=== PATIENT | female | born 1940 | race Caucasian/White ===

== ENCOUNTER 2018-02-01 15:27 | Emergency (ER) | payer OTHER, MEDICAID ==
[~2018-02-01] VITALS: Ht 165.1 cm; Wt 68.0 kg
[~2018-02-01 15:27] MED LIST: DIGO125T4 GT; DIPH25CA83 GT; HYDR-1189 GT; IPRA3AMP9 INH; LISI10TA5 GT; LORA-258 GT; METO25TA6 GT; PRO40 GT; SSREG SUBCUT; TYLL650 GT
[2018-02-01 15:29] VITALS: BP_SYST 116
[2018-02-01] MEDS ORDERED: GASTROGRAFIN 120 ML ONE (15:44)
[2018-02-01 16:51] VITALS: BP_SYST 116
== END 2018-02-01 16:51 | disposition home or self-care (01) ==
LOC: SED 15:27
DX: Z43.1 Encounter for attention to gastrostomy (principal); I48.91 Unspecified atrial fibrillation; J44.0 Chronic obstructive pulmonary disease with (acute) lower respiratory infection; E11.9 Type 2 diabetes mellitus without complications; I10 Essential (primary) hypertension; Z88.0 Allergy status to penicillin; Z79.899 Other long term (current) drug therapy; Z86.73 Personal history of transient ischemic attack (TIA), and cerebral infarction without residual deficits
CPT/HCPCS: 43760; 74240; 99284; Q9963

== ENCOUNTER 2018-07-25 11:39 | Emergency (ER) | payer OTHER, MEDICAID ==
[~2018-07-25] VITALS: Ht 160 cm; Wt 63.5 kg
[~2018-07-25 11:39] MED LIST changes: +DIGO-31 GT; -DIGO125T4 GT
[2018-07-25 11:40] VITALS: BP_SYST 118
[2018-07-25] MEDS ORDERED: GASTROGRAFIN 120 ML ONE (12:04)
[2018-07-25 12:55] VITALS: BP_SYST 118
== END 2018-07-25 12:55 | disposition home or self-care (01) ==
LOC: SED 11:39
DX: Z93.1 Gastrostomy status (principal); I48.91 Unspecified atrial fibrillation; J44.9 Chronic obstructive pulmonary disease, unspecified; K21.9 Gastro-esophageal reflux disease without esophagitis; E11.9 Type 2 diabetes mellitus without complications; I10 Essential (primary) hypertension; Z86.73 Personal history of transient ischemic attack (TIA), and cerebral infarction without residual deficits; Z88.0 Allergy status to penicillin; Z79.899 Other long term (current) drug therapy
CPT/HCPCS: 74240; 99283; Q9963

== ENCOUNTER 2019-06-10 00:33 | Emergency (ER) | payer OTHER, MEDICAID ==
[~2019-06-10] VITALS: Ht 165.1 cm; Wt 72.6 kg
[2019-06-10 00:37] VITALS: BP_SYST 135
[2019-06-10] MEDS ORDERED: GASTROGRAFIN 120 ML ONE (02:02)
[2019-06-10 03:16] VITALS: BP_SYST 132
== END 2019-06-10 03:17 | disposition home or self-care (01) ==
LOC: SED 00:33
DX: Z43.1 Encounter for attention to gastrostomy (principal); I48.91 Unspecified atrial fibrillation; K21.9 Gastro-esophageal reflux disease without esophagitis; E11.9 Type 2 diabetes mellitus without complications; I10 Essential (primary) hypertension; Z86.73 Personal history of transient ischemic attack (TIA), and cerebral infarction without residual deficits; Z88.0 Allergy status to penicillin; Z79.899 Other long term (current) drug therapy
CPT/HCPCS: 43762; 74240; 99284; Q9963

== ENCOUNTER 2020-08-01 15:18 | Emergency (ER) | payer OTHER, MEDICAID ==
[~2020-08-01] VITALS: Ht 152.4 cm; Wt 62.6 kg
[2020-08-01 15:25] VITALS: BP_SYST 129
--- NOTE | 2020-08-01 15:25 | NUR ---
Patient to ER bed 8 to gown for evaluation. Side rails up.
--- NOTE | 2020-08-01 15:30 | NUR ---
PT ALERT BIB AMBULANCE FROM [facility] FOR GTUBE DISPLACEMENT. V/S STABLE AND PT DENIES ANY DISCOMFORT.
--- NOTE | 2020-08-01 15:40 | NUR ---
Patient moved to bed 1.
--- NOTE | 2020-08-01 16:05 | NUR ---
ASSISTED DR. HUNT WITH GTUBE REPLACEMENT. 18 CZECH INSERTED XRAY ORDERED.
--- NOTE | 2020-08-01 16:20 | NUR ---
PORTABLE XRAY DONE AT BEDSIDE
[2020-08-01] MEDS ORDERED: GASTROGRAFIN 120 ML ONE (16:34)
--- NOTE | 2020-08-01 16:40 | NUR ---
SPOKE WITH SANDY AT [facility] FOR REPORT, AWAITING TRANSPORT
--- NOTE | 2020-08-01 18:51 | NUR ---
PT STILL AWAITING TRANSPORT BACK TO FACILITY. PT RESTING QUIETLY IN NO APPARENT DISTRESS.
[2020-08-01 19:35] VITALS: BP_SYST 129
--- NOTE | 2020-08-01 19:35 | NUR ---
Patient given written and verbal discharge instructions and verbalizes understanding. Dr. Elena ADAM MD discussed with patient the results and treatment provided. Patient in stable condition. ID arm band removed. Patient educated on pain management and to follow up with PMD. Pain Scale 0/10. Opportunity for questions provided and answered. Pt discharged with BLS unit back to facility.
== END 2020-08-01 19:35 | disposition home or self-care (01) ==
LOC: SED 15:18
DX: K94.23 Gastrostomy malfunction (principal); I10 Essential (primary) hypertension; K21.9 Gastro-esophageal reflux disease without esophagitis; E11.9 Type 2 diabetes mellitus without complications; J44.9 Chronic obstructive pulmonary disease, unspecified; I48.91 Unspecified atrial fibrillation; Z86.79 Personal history of other diseases of the circulatory system; Z79.899 Other long term (current) drug therapy; Z88.0 Allergy status to penicillin
CPT/HCPCS: 43762; 74240; 99284; Q9963

== ENCOUNTER 2022-08-30 10:59 | Inpatient (IN) | payer OTHER, MEDICAID ==
[~2022-08-30] VITALS: Ht 162.6 cm; Wt 64.9 kg
[2022-08-30] VITALS (11 sets, daily range): BP systolic 111–140
[~2022-08-30 10:59] MED LIST changes: -HYDR-1189 GT; +HYDR-3919 GT; +LISI10TA29 GT; -LISI10TA5 GT
--- NOTE | 2022-08-30 11:00 | NUR ---
Placed in room 01 . Placed on manager assurance, blood pressure machine and pulse oximeter. To gown for exam. Side rails up. Report given to KATIA BRANNON.
--- NOTE | 2022-08-30 11:12 | NUR ---
COVID AND FLU SWAB COLLECTED
[2022-08-30] MEDS ORDERED: IBUPROFEN 600 MG TABLET PO ONE (11:15)
--- NOTE | 2022-08-30 11:20 | NUR ---
MOTRIN 600MG VIA GTUBE GIVEN FOR TEMP, 102.3F. LEVOFLOXACIN IVPB INITITATED.
[2022-08-30] MEDS ORDERED: METO-442 GT (11:26)
[2022-08-30] MEDS ORDERED: DOCU-144 GT (11:26)
[2022-08-30] MEDS ORDERED: MOM GT (11:26)
[2022-08-30] MEDS ORDERED: INSU100V9 SQ (11:26)
[2022-08-30] MEDS ORDERED: WARF-66 GT (11:26)
[2022-08-30] MEDS ORDERED: MULT9LIQ6 PO (11:26)
[2022-08-30] MEDS ORDERED: OMEP1CAP2 GT (11:26)
[2022-08-30] MEDS ORDERED: LEVE750T4 GT (11:26)
[2022-08-30] MEDS ORDERED: POLY15DR31 EACH EYE (11:26)
[2022-08-30] MEDS ORDERED: BISA-79 PR (11:26)
[2022-08-30] MEDS ORDERED: NOR10 GT (11:26)
--- NOTE | 2022-08-30 11:26 | NUR ---
Medication reconciliation completed with information provided by CRISTINA HARRIS. Any prior medication reconciliation on file was reviewed and corrected.
[2022-08-30] MEDS ORDERED: ALBUTEROL SULFATE 0.083% 2.5 MG/3 ML VIAL.NEB INH ONE (11:45)
[2022-08-30] MEDS ORDERED: IPRATROPIUM BROM 0.5 MG/2.5 ML VIAL.NEB (ATROVENT) INH ONE (11:45)
--- NOTE | 2022-08-30 12:02 | NUR ---
PT VOMITED AND WAS SUCTIONED. O2 SAT MAINTAINING AT 91% ON NONREBREATHER AT 15LPM. R/T CALLED TO BEDSIDE TO GIVE BREATHING TX AND CHANGE PT ALEXIA FLOW N/C.
[2022-08-30 12:09] LABS: ANION GAP 16 (5-15); CALCIUM 9.1 mg/dL (8.4-11.0); CHLORIDE 99 mmol/L (98-107); GLUCOSE 288 mg/dL (70-99); UREA NITROGEN, BLOOD 31 mg/dL (8-21)
[2022-08-30 12:10] LABS: CREATININE 1.55 mg/dL (0.55-1.30); HEMATOCRIT 31.6 % (36-48); HEMOGLOBIN 9.1 g/dL (12.0-16.0); MEAN CORPUSCULAR HEMOGLOBIN 18 pg (27-31); MEAN CORPUSCULAR HGB CONC 29 % (32-36); MEAN CORPUSCULAR VOLUME 64 fL (79.0-98.0); PLATELET COUNT (AUTO) 330 K/uL (130-430); RED BLOOD CELL COUNT(AUTO) 4.98 MIL/uL (4.2-6.2); RED CELL DISTRIBUTION WIDTH 23.3 % (9.0-15.0)
[2022-08-30 12:15] LABS: INR 1.8 (0.8-1.2); PROTHROMBIN TIME 18.6 SECS (9.5-12.5)
[2022-08-30 12:20] LABS: ALANINE AMINOTRANSFERASE 14 U/L (12-78); ALBUMIN 2.9 g/dL (3.4-4.8); ASPARTATE AMINOTRANSFERASE 29 U/L (10-37); CHOLESTEROL 79 mg/dL (<200); HDL CHOLESTEROL 46 mg/dL (>55); LDL CHOLESTEROL 34 mg/dL (<100); TOTAL BILIRUBIN 0.7 mg/dL (0.0-1.0); TRIGLYCERIDES 66 mg/dL (30-150); WHITE BLOOD COUNT (AUTO) 35.4 K/uL (4.8-10.8)
--- NOTE | 2022-08-30 12:38 | NUR ---
REPORTED MAP 62, RECEIVED ORDER FOR NS 2000ML BOLUS, INITIATED AT THIS TIME.
[2022-08-30 12:43] LABS: BAND % (MANUAL) 23 % (0-6)
[2022-08-30 12:44] LABS: BASOPHILS % (MANUAL) 0 % (0-2); EOSINOPHILS % (MANUAL) 0 % (0-7); LYMPHOCYTES % (MANUAL) 3 % (20-46); MONOCYTES % (MANUAL) 6 % (0-11)
[2022-08-30] MEDS ORDERED: NACL 0.9% 2,000 ML IV ONE ×2 (12:45)
--- NOTE | 2022-08-30 12:59 | NUR ---
CENTRAL PLACEMENT TO RIJ, 3 LUMENS. SITE COVERED WITH CDI OCCLUSIVE DRESSING. CXR ORDERED TO VERIFY PLACEMENT.
[2022-08-30] MEDS: KCL 20 mEq in NS 1000 mL 1,000 ML IV SCH ×2 (13:15→23:15)
[2022-08-30] MEDS ORDERED: NOREPINEPHRINE BITARTRATE 4 MG in NS 246 ML IV PRN (13:15)
[2022-08-30] MEDS ORDERED: methylPREDNISolone SOD SUCC/PF 62.5 MG/ML VIAL IVP ONE (13:15)
--- NOTE | 2022-08-30 13:43 | NUR ---
Admit bed requested Patient will be admitted to care of . Admitted to ICU unit. Diagnosis SEVERE SEPSIS, PNEUMONIA, RESPIRATORY FAILURE. Inpatient (Yes or No) YES Observation (Yes or No) NO Orientation concerns or request close to nursing station (Yes or No) NO Covid Status NEGATIVE On vent or bipap NO Isolation requirements YES- INFLUENZA A POSITIVE Needs a sitter NO From Home (Yes or if No enter name of facility) [facility] Requires Dialysis (Yes or No) NO Med Rec Completed (Yes of No) YES
[2022-08-30 13:50] LABS: CKMB RELATIVE INDEX 0.4 (0.0-2.9); CREATINE KINASE MB 1.8 ng/mL (0-3.6)
[2022-08-30] MEDS ORDERED: VANCOMYCIN HCL 1,000 MG in NS 250 ML IV ONE (14:00)
--- NOTE | 2022-08-30 14:12 | NUR ---
urine sent to lab
--- NOTE | 2022-08-30 14:26 | NUR ---
DR. EDMONDS AT BEDSIDE TO ASSESS PT.
--- NOTE | 2022-08-30 14:27 | NUR ---
OBANDO CATH 16FR PLACED, CLEAR YELLOW URINE 100ML NOTED. 10CC NS PLACED IN BALLOON.
[2022-08-30] MEDS ORDERED: NOREPINEPHRINE BITARTRATE 4 MG in D5W 246 ML IV PRN (14:30)
[2022-08-30] MEDS ORDERED: NALOXONE HCL 0.4 MG/ML AMP (NARCAN) IVP PRN ×2 (14:45)
[2022-08-30] MEDS ORDERED: BISACODYL 5 MG TABLET.DR (DULCOLAX) GT PRN (14:45)
[2022-08-30] MEDS ORDERED: DIPHENHYDRAMINE HCL 25 MG CAPSULE GT PRN (14:45)
[2022-08-30] MEDS ORDERED: MILK OF MAGNESIA 30 ML UDC GT PRN (14:45)
[2022-08-30] MEDS ORDERED: HYDROcodone/ACETAMIN 5-325 MG TAB (NORCO/ VICODIN) GT PRN ×2 (14:45)
[2022-08-30] MEDS ORDERED: LORazepam 1 MG TABLET GT PRN (14:45)
[2022-08-30] MEDS ORDERED: LevALBUTEROL HCL 1.25 MG/0.5 ML *CONC.* VIAL.NEB (XOPENEX CONC.) INH SCH (15:00)
[2022-08-30] MEDS ORDERED: DIGOXIN 0.125 MG TABLET GT ONE (15:00)
[2022-08-30] MEDS: LevALBUTEROL HCL 1.25 MG/0.5 ML *CONC.* VIAL.NEB (XOPENEX CONC.) INH SCH ×3 (15:00→23:55)
[2022-08-30] MEDS ORDERED: LevALBUTEROL HCL 1.25 MG/0.5 ML *CONC.* VIAL.NEB (XOPENEX CONC.) INH PRN ×2 (15:00→19:00)
[2022-08-30] MEDS ORDERED: INSULIN REGULAR, HUMAN 10 UNITS/0.1 ML, 3 ML VIAL ONE (15:14)
[2022-08-30] MEDS: INSULIN REGULAR, HUMAN 100 UNITS/ML, 3 ML VIAL (humuLIN R) SUBCUT PRN ×2 (15:23→18:32)
[2022-08-30 15:24] LABS: BILIRUBIN,URINE NEGATIVE (NEGATIVE); BLOOD, URINE 1+ (NEGATIVE); COLOR,URINE YELLOW (YELLOW); GLUCOSE,URINE NEGATIVE (NEGATIVE); KETONES,URINE NEGATIVE (NEGATIVE); NITRITE, URINE NEGATIVE (NEGATIVE); PROTEIN URINE 3+ (NEGATIVE)
[2022-08-30] MEDS ORDERED: VANCOMYCIN HCL 500 MG in NS 100 ML IV SCH (15:30)
[2022-08-30 15:46] LABS: CLARITY/URINE HAZY (CLEAR); LEUKOCYTE ESTERASE ,URINE 1+ (NEGATIVE)
[2022-08-30 15:47] LABS: BACTERIA,URINE FEW /HPF (None Seen)
[2022-08-30 15:48] LABS: FINE GRANULAR CASTS,URINE 0-10 /LPF (None Seen); MUCUS,URINE None Seen /LPF (None Seen)
--- NOTE | 2022-08-30 17:21 | NUR ---
Called Dr. Tran with a consult, spoke with Scarlett from the exchange
[2022-08-30] MEDS ORDERED: PIPERACILLIN/TAZO 2.25G/DEX-IS 50 ML IV SCH (18:00)
[2022-08-30] MEDS: methylPREDNISolone SOD SUCC/PF 62.5 MG/ML VIAL IVP SCH ×2 (18:33→21:19)
[2022-08-30] MEDS: PEG 400/HYPROMELLOSE/GLYCERIN 15 ML DROPS EACH EYE SCH ×2 (18:33→21:19)
[2022-08-30] MEDS ORDERED: LISINOPRIL 10 MG TABLET (PRINIVIL) GT SCH (21:00)
[2022-08-30] MEDS ORDERED: WARFARIN SODIUM 2 MG TABLET GT SCH (21:00)
[2022-08-30] MEDS: levETIRAcetam 500 MG TABLET GT SCH (21:11)
[2022-08-30] MEDS: METOPROLOL TARTRATE 25 MG TABLET GT SCH (21:12)
[2022-08-30] MEDS: DOCUSATE SODIUM 100 MG CAPSULE PO SCH (21:12)
[2022-08-30] MEDS: OSELTAMIVIR PHOSPHATE 6 MG/1 ML, 60 ML SUSP PO SCH (21:13)
[2022-08-30] MEDS ORDERED: MEROPENEM 500 MG in NS 50 ML IV SCH (22:00)
[2022-08-30] MEDS ORDERED: NOREPINEPHRINE 4 MG/4 ML VIAL IV ONE (22:41)
[2022-08-31] VITALS (24 sets, daily range): BP systolic 101–146
[2022-08-31 06:46] LABS: HEMATOCRIT 28.6 % (36-48); HEMOGLOBIN 8.5 g/dL (12.0-16.0); LYMPHOCYTES # (AUTO) 0.8 K/uL (1.0-5.5); LYMPHOCYTES % (AUTO) 3.8 % (20.5-51.5); MEAN CORPUSCULAR HEMOGLOBIN 19 pg (27-31); MEAN CORPUSCULAR HGB CONC 30 % (32-36); MEAN CORPUSCULAR VOLUME 63 fL (79.0-98.0); MONOCYTES # (AUTO) 0.3 K/uL (0.0-1.0); MONOCYTES % (AUTO) 1.7 % (1.7-9.3); NEUTROPHILS # (AUTO) 19.4 K/uL (1.8-7.7); NEUTROPHILS % (AUTO) 94.5 % (40.0-70.0); PLATELET COUNT (AUTO) 251 K/uL (130-430); RED BLOOD CELL COUNT(AUTO) 4.55 MIL/uL (4.2-6.2); RED CELL DISTRIBUTION WIDTH 23.1 % (9.0-15.0)
[2022-08-31] MEDS: methylPREDNISolone SOD SUCC/PF 62.5 MG/ML VIAL IVP SCH ×4 (06:51→22:48)
[2022-08-31 06:57] LABS: INR 2.9 (0.8-1.2); PROTHROMBIN TIME 28.4 SECS (9.5-12.5)
[2022-08-31 07:11] LABS: ANION GAP 9 (5-15); CALCIUM 8.3 mg/dL (8.4-11.0); CHLORIDE 112 mmol/L (98-107); CREATININE 0.86 mg/dL (0.55-1.30); DIGOXIN 0.6 ng/mL (0.80-2.00); GLUCOSE 197 mg/dL (70-99); UREA NITROGEN, BLOOD 23 mg/dL (8-21)
--- NOTE | 2022-08-31 07:15 | NUR ---
RECEIVED REPORT FROM CHEMICAL LABORATORY TESTER RN. PT LAYING IN BED WITH HOB ELEVATED 35 DEGREES. PT IS NONVERBAL BUT WILL ANSWER QUESTIONS BY SHAKING HER HEAD YES OR NO. PT HAS RIJ TRIPLE LUMEN AND 18G IN THE HAND HEP LOCK. NS WITH 20 KCL RUNNING AT 100 MLS/HR AND LEVOPHED AT 0.07 MCG/KG/MIN. PT HAS EXPIRATORY RHONCI AND ON OXYMIZER 3LPM AND SATTING 99%. BP IS STABLE AND HR IS TACHYCARDIC IN THE 110'S. PEG TUBE PLACED WITH GLUCERNA 0.2 RUNNING AT 20 MLS/HR. GOAL IS 100 MLS/HR. WILL TITRATE TOLERATED. [address] TO GRAVITY. YELLOW URINE NOTED WITH SEDIMENT.
[2022-08-31 08:26] LABS: WHITE BLOOD COUNT (AUTO) 20.6 K/uL (4.8-10.8)
[2022-08-31] MEDS: METOPROLOL TARTRATE 25 MG TABLET GT SCH ×2 (09:00→22:46)
[2022-08-31] MEDS ORDERED: FERROUS FUM PO SCH (09:00)
[2022-08-31] MEDS ORDERED: MINERALS PO SCH (09:00)
[2022-08-31] MEDS ORDERED: MULTIVIT PO SCH (09:00)
[2022-08-31] MEDS: MULTIVITS,CA,MINERALS/IRON/FA 1 TABLET GT SCH (09:56)
[2022-08-31] MEDS: DOCUSATE SODIUM 100 MG CAPSULE PO SCH ×2 (09:57→20:24)
[2022-08-31] MEDS: levETIRAcetam 500 MG TABLET GT SCH ×2 (09:57→22:45)
[2022-08-31] MEDS: LevALBUTEROL HCL 1.25 MG/0.5 ML *CONC.* VIAL.NEB (XOPENEX CONC.) INH SCH ×3 (09:59→18:55)
[2022-08-31] MEDS: OSELTAMIVIR PHOSPHATE 6 MG/1 ML, 60 ML SUSP PO SCH ×2 (09:59→22:47)
[2022-08-31] MEDS: KCL 20 mEq in NS 1000 mL 1,000 ML IV SCH ×2 (10:01→20:23)
[2022-08-31] MEDS: PANTOPRAZOLE SODIUM 40 MG TAB PO SCH (10:02)
[2022-08-31] MEDS: PEG 400/HYPROMELLOSE/GLYCERIN 15 ML DROPS EACH EYE SCH ×4 (10:03→22:45)
[2022-08-31] MEDS: DIGOXIN 0.125 MG TABLET GT SCH (10:04)
[2022-08-31] MEDS: MEROPENEM 1 GM in NS 100 ML IV SCH ×2 (10:04→22:47)
--- NOTE | 2022-08-31 10:30 | NUR ---
PT HAD LOOSE STOOL BM. CLEANED HER UP. PLACED FOAM DRESSING ON COCCYX. ORAL CARE DONE. CHG BATH GIVEN. HEELS FLOATING AND TURNED PT. MINIMAL RESIDUAL. INCREASED TUBE FEEDING TO 30MLS/HR.
[2022-08-31] MEDS: INSULIN REGULAR, HUMAN 100 UNITS/ML, 3 ML VIAL (humuLIN R) SUBCUT PRN ×2 (12:41→18:19)
[2022-08-31 13:24] LABS: BILIRUBIN,URINE NEGATIVE (NEGATIVE); BLOOD, URINE 2+ (NEGATIVE); CLARITY/URINE SL CLOUDY (CLEAR); COLOR,URINE YELLOW (YELLOW); GLUCOSE,URINE NEGATIVE (NEGATIVE); KETONES,URINE NEGATIVE (NEGATIVE); LEUKOCYTE ESTERASE ,URINE TRACE (NEGATIVE); NITRITE, URINE NEGATIVE (NEGATIVE); PROTEIN URINE 2+ (NEGATIVE); UROBILINOGEN,URINE 0.2 (0.2-1.0)
[2022-08-31 13:33] LABS: RBC,URINE 0-3 /HPF (0-3)
[2022-08-31 13:34] LABS: BACTERIA,URINE None Seen /HPF (None Seen); MUCUS,URINE None Seen /LPF (None Seen)
[2022-08-31] MEDS ORDERED: COMMUNICATION ORDER XX ONE (14:00)
[2022-08-31 16:00] LABS: INR 3.8 (0.8-1.2); PROTHROMBIN TIME 36.7 SECS (9.5-12.5)
[2022-08-31] MEDS: VANCOMYCIN HCL 1,000 MG in NS 250 ML IV SCH (16:18)
[2022-08-31] MEDS: ACETAMINOPHEN 650 MG/20.3 ML UDC GT PRN ×4 (16:36→17:44)
--- NOTE | 2022-08-31 19:30 | NUR ---
Received patient and assumed care. Patient continues in isolation for influenza A. Awake and tracking but non verbal as per report that is baseline. O2 therapy with oxymizer at 3 L/m and tolerating well. No signs of distress or pain. Right IJ central line not bleeding as it was happening the day before. Dressing CDI. will continue to monitor as per unit protocol.
[2022-09-01] VITALS (24 sets, daily range): BP systolic 105–151
[2022-09-01] MEDS: LevALBUTEROL HCL 1.25 MG/0.5 ML *CONC.* VIAL.NEB (XOPENEX CONC.) INH SCH ×3 (00:03→20:48)
[2022-09-01] MEDS: KCL 20 mEq in NS 1000 mL 1,000 ML IV SCH ×2 (05:15→16:42)
[2022-09-01] MEDS: methylPREDNISolone SOD SUCC/PF 62.5 MG/ML VIAL IVP SCH ×3 (06:50→21:43)
--- NOTE | 2022-09-01 07:30 | NUR ---
RECEIVED REPORT FROM ENDORSING GEODETIC TECHNICIAN KATIA PINK FOR CONTINUITY OF CARE.PATIENT LYING ON BED WITH AN IVF OF KCL 20MEQ @ 100 ML/HR., ON 3 l OXYMIZER ON TUBE FEEDING, OBANDO CATHETER IN PLACE, JACINTA URINE IN COLOR DRAINING TO GRAVITY, NO SIGNS OF ACUTE DISTRESS NOTED AT THIS TIME, WILL CONTINUE TO MONITOR.
[2022-09-01 08:15] LABS: BASOPHILS % (AUTO) 0.1 % (0.0-2.0); HEMATOCRIT 22.2 % (36-48); LYMPHOCYTES # (AUTO) 0.8 K/uL (1.0-5.5); LYMPHOCYTES % (AUTO) 8.1 % (20.5-51.5); MEAN CORPUSCULAR HEMOGLOBIN 19 pg (27-31); MEAN CORPUSCULAR HGB CONC 29 % (32-36); MEAN CORPUSCULAR VOLUME 64 fL (79.0-98.0); MONOCYTES # (AUTO) 0.4 K/uL (0.0-1.0); MONOCYTES % (AUTO) 4.3 % (1.7-9.3); NEUTROPHILS % (AUTO) 87.5 % (40.0-70.0); PLATELET COUNT (AUTO) 233 K/uL (130-430); RED BLOOD CELL COUNT(AUTO) 3.48 MIL/uL (4.2-6.2); RED CELL DISTRIBUTION WIDTH 22.9 % (9.0-15.0); WHITE BLOOD COUNT (AUTO) 10.2 K/uL (4.8-10.8)
[2022-09-01] MEDS: levETIRAcetam 500 MG TABLET GT SCH ×2 (08:45→21:06)
[2022-09-01] MEDS: MULTIVITS,CA,MINERALS/IRON/FA 1 TABLET GT SCH (08:45)
[2022-09-01] MEDS: DIGOXIN 0.125 MG TABLET GT SCH (08:46)
[2022-09-01] MEDS: PANTOPRAZOLE SODIUM 40 MG TAB PO SCH (08:46)
[2022-09-01] MEDS: METOPROLOL TARTRATE 25 MG TABLET GT SCH ×2 (08:48→21:06)
[2022-09-01] MEDS: DOCUSATE SODIUM 100 MG CAPSULE PO SCH ×2 (08:48→21:07)
[2022-09-01] MEDS: OSELTAMIVIR PHOSPHATE 6 MG/1 ML, 60 ML SUSP PO SCH ×2 (08:51→21:06)
[2022-09-01] MEDS: PEG 400/HYPROMELLOSE/GLYCERIN 15 ML DROPS EACH EYE SCH ×4 (08:52→21:07)
[2022-09-01 09:04] LABS: INR 3.7 (0.8-1.2); PROTHROMBIN TIME 35.7 SECS (9.5-12.5)
[2022-09-01 10:05] LABS: HEMOGLOBIN 6.5 g/dL (12.0-16.0)
[2022-09-01] MEDS: MEROPENEM 1 GM in NS 100 ML IV SCH ×2 (10:46→21:43)
--- NOTE | 2022-09-01 12:22 | NUR ---
PATIENT BLOOD GLUCOSE 136, NO INSULIN COVERAGE PER SLIDING SCALE.
--- NOTE | 2022-09-01 14:50 | NUR ---
Dietitian Recommendations * Consider a new goal rate of 65mL/hr Provides:1872 kcal, 93 g pro, 1256 mL free water Meets: 96% of lower kcal, 96% of lower protein, 66% water needs * Consider free water flush of 161mL Q6H, or per MD * Recommend updating diet order to show the current goal rate GS, MPH, RD Please refer to RD Assessment for further details Addendum: 09/01/22 at [address] Amended: Links added.
[2022-09-01] MEDS: VANCOMYCIN HCL 1,000 MG in NS 250 ML IV SCH (15:07)
--- NOTE | 2022-09-01 16:12 | NUR ---
BLOOD TRANSFUSION STARTED AT 1612, PATIENT VITAL SIGNS TEMPERATURE 98.1, PULSE RATE 78, RESPIRATORY RATE 28, BLOOD PRESSURE 136/67. WILL CONTINUE TO MONITOR
[2022-09-01] MEDS: INSULIN REGULAR, HUMAN 100 UNITS/ML, 3 ML VIAL (humuLIN R) SUBCUT PRN (17:39)
--- NOTE | 2022-09-01 20:00 | NUR ---
RN NOTES AWAKE AND ALERT, NON VERBAL. NOT IN ACUTE DISTRESS, SPO2 GOOD SINUS RHYTHM ON THE MONITOR.
[2022-09-01] MEDS ORDERED: WARFARIN SODIUM 3 MG TABLET GT SCH (21:00)
--- NOTE | 2022-09-01 22:30 | NUR ---
RN NOTES 2ND UNIT OF PRBC STARTED.
[2022-09-02] VITALS (24 sets, daily range): BP systolic 118–177
--- NOTE | 2022-09-02 00:05 | NUR ---
PM SHIFT ASSESSMENT PATIENT IS AWAKE IN BED, NON VERBAL BUT ABLE TO ANSWER YES OR NO QUESTIONS. SPO2 ABOVE 94%, RR EVEN AND UNLABORED. SB/SR ON MONITOR. SKIN WARM AND DRY. IVF INFUSING. SAFETY PRECAUTIONS IN PLACE, CALL LIGHT WITHIN REACH. WILL CONTINUE TO MONITOR.
[2022-09-02] MEDS: INSULIN REGULAR, HUMAN 100 UNITS/ML, 3 ML VIAL (humuLIN R) SUBCUT PRN ×4 (01:42→17:19)
[2022-09-02] MEDS: LevALBUTEROL HCL 1.25 MG/0.5 ML *CONC.* VIAL.NEB (XOPENEX CONC.) INH SCH ×4 (01:48→20:46)
[2022-09-02] MEDS: KCL 20 mEq in NS 1000 mL 1,000 ML IV SCH (05:11)
[2022-09-02] MEDS: methylPREDNISolone SOD SUCC/PF 62.5 MG/ML VIAL IVP SCH ×3 (05:30→22:36)
--- NOTE | 2022-09-02 07:10 | NUR ---
ENDORSEMENT PATIENT CARE ENDORSED TO LEANDRO MONTALVO.
--- NOTE | 2022-09-02 07:10 | NUR ---
Opening Received report on pt. Pt awake, nonverbal, responds to simple questions. Pt in no signs of distress on 3L oximizer. Receiving IVF to right IJ TLC. GT with tube feeding, tolerating well. Walker with urine draining to gravity.
[2022-09-02 07:22] LABS: ANION GAP 8 (5-15); CALCIUM 8.4 mg/dL (8.4-11.0); CHLORIDE 118 mmol/L (98-107); CREATININE 0.61 mg/dL (0.55-1.30); GLUCOSE 228 mg/dL (70-99); UREA NITROGEN, BLOOD 29 mg/dL (8-21)
[2022-09-02 07:27] LABS: TOTAL IRON BIND. CAPACITY 275 ug/dL (250-450)
[2022-09-02] MEDS: levETIRAcetam 500 MG TABLET GT SCH ×2 (08:21→22:33)
[2022-09-02] MEDS: MULTIVITS,CA,MINERALS/IRON/FA 1 TABLET GT SCH (08:22)
[2022-09-02] MEDS: PANTOPRAZOLE SODIUM 40 MG TAB PO SCH (08:22)
[2022-09-02] MEDS: DOCUSATE SODIUM 100 MG CAPSULE PO SCH (08:22)
[2022-09-02] MEDS: DIGOXIN 0.125 MG TABLET GT SCH (08:22)
[2022-09-02] MEDS: METOPROLOL TARTRATE 25 MG TABLET GT SCH (08:22)
[2022-09-02] MEDS: PEG 400/HYPROMELLOSE/GLYCERIN 15 ML DROPS EACH EYE SCH ×4 (08:23→22:33)
[2022-09-02 08:48] LABS: BASOPHILS % (AUTO) 0.2 % (0.0-2.0); HEMOGLOBIN 11.2 g/dL (12.0-16.0); LYMPHOCYTES # (AUTO) 0.8 K/uL (1.0-5.5); LYMPHOCYTES % (AUTO) 14.5 % (20.5-51.5); MEAN CORPUSCULAR HEMOGLOBIN 22 pg (27-31); MEAN CORPUSCULAR HGB CONC 31 % (32-36); MEAN CORPUSCULAR VOLUME 69 fL (79.0-98.0); MONOCYTES # (AUTO) 0.2 K/uL (0.0-1.0); MONOCYTES % (AUTO) 3.1 % (1.7-9.3); NEUTROPHILS # (AUTO) 4.6 K/uL (1.8-7.7); PLATELET COUNT (AUTO) 235 K/uL (130-430); RED CELL DISTRIBUTION WIDTH 28.1 % (9.0-15.0); WHITE BLOOD COUNT (AUTO) 5.6 K/uL (4.8-10.8)
[2022-09-02 08:58] LABS: NEUTROPHILS % (AUTO) 82.2 % (40.0-70.0)
[2022-09-02] MEDS: DOCUSATE SODIUM 100 MG/10 ML UDC GT SCH ×2 (09:00→22:33)
[2022-09-02] MEDS ORDERED: DOCUSATE SODIUM 100 MG/10 ML UDC PO SCH (09:00)
[2022-09-02] MEDS: LANSOPRAZOLE 30 MG CAPSULE.DR GT SCH (09:00)
[2022-09-02] MEDS: OSELTAMIVIR PHOSPHATE 6 MG/1 ML, 60 ML SUSP PO SCH ×2 (09:26→22:36)
[2022-09-02] MEDS: MEROPENEM 1 GM in NS 100 ML IV SCH ×2 (09:28→22:39)
[2022-09-02 10:29] LABS: INR 2.2 (0.8-1.2)
--- NOTE | 2022-09-02 11:35 | NUR ---
Transfer of care Pt in no signs of pain or distress, remains on oximizer 2L. Tolerating tube feeding, rate increased to goal rate. Walker with urine draining to gravity. Endorsed plan of care to Brian MONTALVO.
--- NOTE | 2022-09-02 12:29 | NUR ---
Spoke with Suzanne and Dr. Tran's office requesting orders.
[2022-09-02] MEDS ORDERED: 0.45% NACL 1,000 ML IV SCH (14:15)
[2022-09-02] MEDS: SOD FERRIC GLUC COMPLEX/SUC 125 MG in NS 100 ML IV SCH (16:04)
[2022-09-02] MEDS: WARFARIN SODIUM 2 MG TABLET PO SCH (17:23)
--- NOTE | 2022-09-02 22:00 | NUR ---
Dr Tran at bedside. changes in medication metroprolol will be ordered and digoxin level in am.
[2022-09-03] VITALS (24 sets, daily range): BP systolic 106–165
[2022-09-03] MEDS: LevALBUTEROL HCL 1.25 MG/0.5 ML *CONC.* VIAL.NEB (XOPENEX CONC.) INH SCH ×3 (02:54→12:11)
[2022-09-03] MEDS: methylPREDNISolone SOD SUCC/PF 62.5 MG/ML VIAL IVP SCH ×3 (06:21→21:11)
[2022-09-03 06:49] LABS: INR 2.3 (0.8-1.2); PROTHROMBIN TIME 22.5 SECS (9.5-12.5)
[2022-09-03 06:53] LABS: ANION GAP 6 (5-15); CALCIUM 8.4 mg/dL (8.4-11.0); CHLORIDE 115 mmol/L (98-107); CREATININE 0.56 mg/dL (0.55-1.30); DIGOXIN 0.7 ng/mL (0.80-2.00); GLUCOSE 138 mg/dL (70-99); UREA NITROGEN, BLOOD 28 mg/dL (8-21)
[2022-09-03 06:54] LABS: BASOPHILS % (AUTO) 0.1 % (0.0-2.0); HEMATOCRIT 33.3 % (36-48); HEMOGLOBIN 10.5 g/dL (12.0-16.0); LYMPHOCYTES # (AUTO) 1.9 K/uL (1.0-5.5); LYMPHOCYTES % (AUTO) 22.7 % (20.5-51.5); MEAN CORPUSCULAR HEMOGLOBIN 22 pg (27-31); MEAN CORPUSCULAR HGB CONC 32 % (32-36); MEAN CORPUSCULAR VOLUME 70 fL (79.0-98.0); MONOCYTES # (AUTO) 0.6 K/uL (0.0-1.0); MONOCYTES % (AUTO) 6.6 % (1.7-9.3); NEUTROPHILS % (AUTO) 70.6 % (40.0-70.0); PLATELET COUNT (AUTO) 247 K/uL (130-430); RED BLOOD CELL COUNT(AUTO) 4.77 MIL/uL (4.2-6.2); RED CELL DISTRIBUTION WIDTH 27.7 % (9.0-15.0); WHITE BLOOD COUNT (AUTO) 8.4 K/uL (4.8-10.8)
--- NOTE | 2022-09-03 08:00 | NUR ---
PATIENT IN BED, NO S/S OF DISTRESS, ON 2L OXYMIZER, RHONCHI. OBANDO DRAINING CLEAR YELLOW URINE, LEFT UPPER ARM MIDLINE INTACT PATENT, RIGHT NECK DRESSING CLEAN DRY INTACT.
[2022-09-03] MEDS: DOCUSATE SODIUM 100 MG/10 ML UDC GT SCH ×2 (08:12→21:11)
[2022-09-03] MEDS: MULTIVITS,CA,MINERALS/IRON/FA 1 TABLET GT SCH (08:12)
[2022-09-03] MEDS: OSELTAMIVIR PHOSPHATE 6 MG/1 ML, 60 ML SUSP PO SCH ×2 (08:12→21:15)
[2022-09-03] MEDS: DIGOXIN 0.125 MG TABLET GT SCH (08:13)
[2022-09-03] MEDS: levETIRAcetam 500 MG TABLET GT SCH ×2 (08:13→21:12)
[2022-09-03] MEDS: LANSOPRAZOLE 30 MG CAPSULE.DR GT SCH (08:13)
[2022-09-03] MEDS: METOPROLOL TARTRATE 25 MG TABLET GT SCH ×2 (08:14→21:16)
[2022-09-03] MEDS: PEG 400/HYPROMELLOSE/GLYCERIN 15 ML DROPS EACH EYE SCH ×4 (08:14→21:12)
[2022-09-03 10:06] LABS: FERRITIN 88 ng/mL (15-150)
--- NOTE | 2022-09-03 11:07 | NUR ---
DR CORBIN AT BEDSIDE, EXAMINED PATIENT STATUS, WET COUGH AND CRACKLES NOTED SO DR CORBIN ORDERED FOR FLUIDS TO BE STOPPED AND FOR LASIX IVP 20MG ONCE AND STATED THAT HE WILL CHANGE THE BREATHING TREATMENT ORDERS. NOT CLEARED FOR TELE STATUS AT THIS TIME. CONTINUE ICU STATUS.
[2022-09-03] MEDS: MEROPENEM 1 GM in NS 100 ML IV SCH ×2 (11:10→21:12)
[2022-09-03] MEDS ORDERED: FUROSEMIDE 20 MG/2 ML VIAL IVP ONE ×2 (11:15)
[2022-09-03 13:06] LABS: FOLATE (FOLIC ACID) >20.0 ng/mL (>3.0)
[2022-09-03] MEDS: IPRATROPIUM/ALBUTEROL SULFATE 3 ML AMPUL.NEB (DUONEB) INH SCH ×3 (15:00→23:18)
[2022-09-03] MEDS: SOD FERRIC GLUC COMPLEX/SUC 125 MG in NS 100 ML IV SCH (15:15)
--- NOTE | 2022-09-03 16:00 | NUR ---
PATIENT HAS TELE ORDER, NO BED AVAILABLE FOR TRANSFER. Addendum: 09/03/22 at 4517 by James Bruno RN RN WRONG PATIENT, PLEASE DISREGARD.
[2022-09-03] MEDS: ACETYLCYSTEINE 20% 4 ML VIAL (RT) INH SCH ×2 (16:14→20:39)
--- NOTE | 2022-09-03 18:00 | NUR ---
1X LASIX DOSE GIVEN TOTAL OF 2900ML URINE OUT FOR THE SHIFT. BLOOD PRESSURE STABLE, BREATHING SOUNDS MORE CLEAR.
[2022-09-03] MEDS: WARFARIN SODIUM 2 MG TABLET PO SCH (18:21)
[2022-09-03] MEDS: INSULIN REGULAR, HUMAN 100 UNITS/ML, 3 ML VIAL (humuLIN R) SUBCUT PRN (18:38)
[2022-09-04] VITALS (24 sets, daily range): BP systolic 121–158
[2022-09-04] MEDS: INSULIN REGULAR, HUMAN 100 UNITS/ML, 3 ML VIAL (humuLIN R) SUBCUT PRN ×3 (00:14→17:36)
[2022-09-04] MEDS: IPRATROPIUM/ALBUTEROL SULFATE 3 ML AMPUL.NEB (DUONEB) INH SCH ×6 (02:07→23:31)
[2022-09-04 06:27] LABS: BASOPHILS % (AUTO) 0.1 % (0.0-2.0); LYMPHOCYTES % (AUTO) 16.7 % (20.5-51.5); MEAN CORPUSCULAR HEMOGLOBIN 22 pg (27-31); MEAN CORPUSCULAR HGB CONC 32 % (32-36); MEAN CORPUSCULAR VOLUME 70 fL (79.0-98.0); MONOCYTES # (AUTO) 0.2 K/uL (0.0-1.0); MONOCYTES % (AUTO) 3.6 % (1.7-9.3); NEUTROPHILS # (AUTO) 4.8 K/uL (1.8-7.7); NEUTROPHILS % (AUTO) 79.6 % (40.0-70.0); PLATELET COUNT (AUTO) 257 K/uL (130-430); RED BLOOD CELL COUNT(AUTO) 5.03 MIL/uL (4.2-6.2)
[2022-09-04 06:40] LABS: ANION GAP 6 (5-15); CALCIUM 8.6 mg/dL (8.4-11.0); CHLORIDE 109 mmol/L (98-107); GLUCOSE 218 mg/dL (70-99); UREA NITROGEN, BLOOD 27 mg/dL (8-21)
[2022-09-04] MEDS: methylPREDNISolone SOD SUCC/PF 62.5 MG/ML VIAL IVP SCH ×2 (06:51→21:31)
[2022-09-04] MEDS: LevALBUTEROL HCL 1.25 MG/0.5 ML *CONC.* VIAL.NEB (XOPENEX CONC.) INH SCH ×2 (07:00→13:00)
--- NOTE | 2022-09-04 07:19 | NUR ---
ENDORSEMENT PATIENT CARE ENDORSED TO LEANDRO MONTALVO.
[2022-09-04 07:26] LABS: INR 2.1 (0.8-1.2); PROTHROMBIN TIME 20.9 SECS (9.5-12.5)
--- NOTE | 2022-09-04 07:41 | NUR ---
patient in bed on 2l Oxymizer, loud audible rhonchi, nasal deep suctioning provided by respiratory therapist, assisted by primary RN. patient tolerated well. oral care provided.
[2022-09-04] MEDS: ACETYLCYSTEINE 20% 4 ML VIAL (RT) INH SCH ×4 (08:05→23:31)
[2022-09-04] MEDS: LANSOPRAZOLE 30 MG CAPSULE.DR GT SCH (08:10)
[2022-09-04] MEDS: OSELTAMIVIR PHOSPHATE 6 MG/1 ML, 60 ML SUSP PO SCH (08:10)
[2022-09-04] MEDS: DOCUSATE SODIUM 100 MG/10 ML UDC GT SCH ×2 (08:10→21:29)
[2022-09-04] MEDS: levETIRAcetam 500 MG TABLET GT SCH ×2 (08:10→21:29)
[2022-09-04] MEDS: DIGOXIN 0.125 MG TABLET GT SCH (08:11)
[2022-09-04] MEDS: MULTIVITS,CA,MINERALS/IRON/FA 1 TABLET GT SCH (08:11)
[2022-09-04] MEDS: METOPROLOL TARTRATE 25 MG TABLET GT SCH ×2 (08:11→21:31)
[2022-09-04] MEDS: PEG 400/HYPROMELLOSE/GLYCERIN 15 ML DROPS EACH EYE SCH ×4 (08:11→21:28)
[2022-09-04] MEDS: MEROPENEM 1 GM in NS 100 ML IV SCH ×2 (11:50→21:32)
[2022-09-04] MEDS: ACETAMINOPHEN 650 MG/20.3 ML UDC GT PRN (12:17)
--- NOTE | 2022-09-04 15:00 | NUR ---
Wound Evaluation: Wound Consult ordered for Low Horacio Score. Patient evaluated for a low Horacio score of 15. Patient was awake, alert, confused, and received in a [place] Bed with an Isoflex RABIA mattress with low air loss therapy initiated. Patient needs to be turned in bed. Skin is intact. Recommend reposition patient every 2 hours with pillow support. Elevate, off-load and float bilateral heels with 1 pillow lengthwise under each extremity at all times. Offload pressure areas with pillows for pressure re-distribution. Perform skin care and monitor skin integrity Q shift. Use moisture barrier cream on moisture susceptible areas QID and PRN for soiling. Maintain patient on a low air-loss mattress.
[2022-09-04] MEDS: SOD FERRIC GLUC COMPLEX/SUC 125 MG in NS 100 ML IV SCH (15:53)
[2022-09-04] MEDS: WARFARIN SODIUM 2 MG TABLET PO SCH (17:35)
--- NOTE | 2022-09-04 18:07 | NUR ---
Nutrition F/U: Admitting Diagnosis: Septic shock, Pneumonia, respiratory failure Reviewed Pertinent Medical/Surgical Hx: Medical Record, Other Medical History Comment: Per EMR: 82yo female transferred to the ED with severe hypoxia, hypotension, evaluated by the ER physician. Initial workup significant for septic shock with lower lobe pneumonia. The patient started on high flow oxygen, IV fluid, antibiotic, admitted to ICU. The patient is a poor historian secondary to her old cerebrovascular accident. Pt found positive for Influenza A on 08/30/22. PMHx: HTN, atrial fibrillation, CVA, DM Subjective Information Nutrition Consult received 09/04/22 0105 for Low Horacio. Patient Day Coordinator deferred bedside visit to reduce transmission of Influenza A. Patient Day Coordinator witnessed Glucerna 1.2 running at 50ml/hr, 1152ml infused at time of visit. Per RN, gave verbal order to run TF at 50ml/hr w/ 150ml Q6h, pt tolerating at this rate w/ no GRV. TF running at current rate of 50ml/hr provides daily: 1440kcal, 72g protein, and 1566ml. This meets: 74% of lower end of caloric and protein needs, and 82% lower end of fluid needs. Current TF order at rate of 100ml/hr provides daily: 2880 kcal, 144g pro, 1932 mL free water This meets: 127% of upper end of estimated calorie needs 131% of higher end of estimated protein needs. Current Diet Order/Nutrition Support Glucerna 1.2 @100mL/hr, FWF 150mL Q6H x 5 days Patient/Significant Other: Unable To Verbalize Pertinent Medications: Vanco Iv, Theragran, Protonix, Keppra, Colace, SSI, Solumedrol, Lopressor, Coumadin, Lansoprazole, Levophed Pertinent Labs (09/04): H/H 11L/35L - improved, BUN 27 H - worsening, BG/POC BG 218 H/201 H - worsening Anthropometrics: Height: 5'4 Weight: 143#/64.9kg Body Mass Index: 24.54 kg/m2 %IBW: 118 [place]/Adjusted Body Weight:120#/55 kg Recent Weight Change: No - Per RN Screen Gastrointestinal Symptoms: None Last BM: Sep 02, 2022 Usual Diet At Home: NG tube per RN Screen Skin Integrity Comment: Hoarcio Score: 15, no edema/PIs per EMR review 09/04 Estimated Energy Expenditure (kcals/day) 4816-8544 kcal (30-35 kcal/kg CBW d/t Sepsis) Estimated Protein Required (g/day) 97-110g (1.5-1.7g/kg CBW d/t sepsis) Estimated Fluid Required (l/day) 1.9-2.2L (1mL/kcal maintenance) Problem/Etiology/Signs/Symptoms * Increased energy and protein utilization r/t metabolic demands a/e/b estimated nutritional needs for sepsis (Ongoing) * Suboptimal EN support R/T overfeeding AEB current TF prescription meets 127% of estimated higher range caloric needs and 131% of higher end of estimated protein needs (Ongoing) Expected Outcomes/Goals EN tolerated at goal rate, EN provides >90% estimated nutritional needs, improvements in skin integrity, nutrition-related labs trending WNL, weight maintenance, BM q 1-3 days Dietitian Recommendations * Consider Glucerna 1.2 @ goal rate of 65mL/hr, 161mL Q6h FWF or per MD, Papito BID Provides daily (w/ Papito): 2052 kcal, 99 g pro, 1900 mL free water Meets: 90% of upper end of estimated caloric and protein needs, 100% of lower end of estimated fluid needs * Recommend updating diet order to show the current goal rate High Risk: F/U in 2-3days Follow Up By: Sep 07, 2022 Co-Signed by: Liliana Andrade, MPH, RDN
--- NOTE | 2022-09-04 19:30 | NUR ---
Pt report received. Pt alert, able to track with eyes, non-verbal. O2 at 2 LPM/NC, even and non-labored respirations. DEMETRIA Midline patent and secure with 1/2 NS at 50 mL/hr. Glucerna 1.2 at 50 mL/hr to G-tube. Right sided paralysis noted, able to move DEMETRIA. F/C secure draining yellow urine. VSS, NAD.
[2022-09-04] MEDS ORDERED: METOPROLOL TARTRATE 25 MG TABLET ONE (20:05)
[2022-09-04] MEDS ORDERED: methylPREDNISolone SOD SUCC/PF 62.5 MG/ML VIAL ONE (20:06)
[2022-09-04] MEDS ORDERED: DOCUSATE SODIUM 100 MG/10 ML UDC ONE (20:07)
[2022-09-04] MEDS ORDERED: levETIRAcetam 500 MG TABLET ONE (20:08)
[2022-09-04] MEDS ORDERED: dilTIAZem HCL IVP 5 MG/ML VIAL IVP ONE (23:00)
--- NOTE | 2022-09-04 23:00 | NUR ---
Called Dr. Cannon to inform pt HR sustaining in the 120's - 130's, A-fib RVR. New orders received to give Cardizem 10 mg IVP now.
[2022-09-04] MEDS ORDERED: dilTIAZem HCL IVP 5 MG/ML VIAL ONE (23:01)
--- NOTE | 2022-09-04 23:05 | NUR ---
Cardizem 10 mg IVP given.
[2022-09-05] VITALS (23 sets, daily range): BP systolic 111–162
--- NOTE | 2022-09-05 00:10 | NUR ---
Pt HR 130's, asymptomatic. Cardizem drip prepared. Upon arrival to bedside, pt HR began to drop to mid 40's. HR increased to 70's after tactile stimulation. Cardizem drip at bedside, not infusing.
[2022-09-05] MEDS: 0.45% NACL 1,000 ML IV SCH ×2 (01:08→19:00)
--- NOTE | 2022-09-05 01:15 | NUR ---
Pt alert, responsive, VSS with HR 55 - 60.
[2022-09-05] MEDS: IPRATROPIUM/ALBUTEROL SULFATE 3 ML AMPUL.NEB (DUONEB) INH SCH ×6 (02:45→23:21)
--- NOTE | 2022-09-05 03:00 | NUR ---
Pt alert, responsive, HR ranging 55-60, NAD.
[2022-09-05] MEDS: ACETYLCYSTEINE 20% 4 ML VIAL (RT) INH SCH ×6 (03:11→23:32)
[2022-09-05] MEDS: INSULIN REGULAR, HUMAN 100 UNITS/ML, 3 ML VIAL (humuLIN R) SUBCUT PRN ×2 (05:47→18:11)
[2022-09-05] MEDS: LevALBUTEROL HCL 1.25 MG/0.5 ML *CONC.* VIAL.NEB (XOPENEX CONC.) INH SCH (07:00)
--- NOTE | 2022-09-05 07:14 | NUR ---
Pt report given to oncoming RN. Pt alert, responsive, VSS, NAD. DEMETRIA Midline secure with 1/2 NS infusing at 50 mL/hr, Glucerna 1.2 at 50 mL/hr to G-tube, and F/C draining clear yellow urine with total U/O 1200 mL this shift.
[2022-09-05 07:29] LABS: INR 2.4 (0.8-1.2); PROTHROMBIN TIME 23.6 SECS (9.5-12.5)
--- NOTE | 2022-09-05 07:43 | NUR ---
patient in bed, no s/s of distress, nonverbal, not oriented, tracks and follows, 4L oxymizer, left upper arm midline, soares draining clear yellow urine, skin intact, 1/2NS running 50ml/hr, R sided hemiparesis, bed in lowest locked position, safety measures in place, call light within reach, bed alarm on.
[2022-09-05] MEDS: DOCUSATE SODIUM 100 MG/10 ML UDC GT SCH ×2 (08:31→20:56)
[2022-09-05] MEDS: levETIRAcetam 500 MG TABLET GT SCH ×2 (08:31→20:56)
[2022-09-05] MEDS: METOPROLOL TARTRATE 25 MG TABLET GT SCH ×2 (08:32→20:57)
[2022-09-05] MEDS: DIGOXIN 0.125 MG TABLET GT SCH (08:33)
[2022-09-05] MEDS: LANSOPRAZOLE 30 MG CAPSULE.DR GT SCH (08:33)
[2022-09-05] MEDS: PEG 400/HYPROMELLOSE/GLYCERIN 15 ML DROPS EACH EYE SCH ×4 (08:34→20:56)
[2022-09-05] MEDS: methylPREDNISolone SOD SUCC/PF 62.5 MG/ML VIAL IVP SCH ×2 (08:34→20:57)
[2022-09-05] MEDS: MULTIVITS,CA,MINERALS/IRON/FA 1 TABLET GT SCH (08:34)
[2022-09-05] MEDS: MEROPENEM 1 GM in NS 100 ML IV SCH ×2 (11:44→20:57)
[2022-09-05] MEDS ORDERED: DIGOXIN 0.125 MG TABLET PO ONE (15:45)
--- NOTE | 2022-09-05 15:45 | NUR ---
patient converted to afib, started cardizem drip because heart rate was up to the 130s, Dr Cannon rounded on patient and was made aware of afib and cardizem, ordered to double daily digoxin dosing and give a one time dose now. in addition ordered dr paz for cardiac consult.
[2022-09-05] MEDS: SOD FERRIC GLUC COMPLEX/SUC 125 MG in NS 100 ML IV SCH (15:48)
--- NOTE | 2022-09-05 17:10 | NUR ---
PATIENT WORKED WITH PHYSICAL THERAPY, WAS ABLE TO AMBULATE PER PHYSICAL THERAPIST, CARDIAC CLEARED PATIENT FOR DISCHARGE, CALLED DR FREEDMAN FOR DISCHARGE ORDERS BUT NO ANSWER.
[2022-09-05] MEDS: WARFARIN SODIUM 2 MG TABLET PO SCH (17:52)
--- NOTE | 2022-09-05 20:00 | NUR ---
OPENING NOTE PT LAYING IN BED AWAKE WITH HOB ELEVATED 35 DEGREES. PT IS NONVERBAL REPORTED PT WILL ANSWER QUESTION BY SHAKING HEAD YES OR NO. PT IS CROATIAN SPEAKING AND WITH CROATIAN SPEAKING STAFF PT SHAKE HER HEAD YES TO ALL QUESTIONS INCORRECTLY. PT HAS L U/A MIDLINE DOUBLE LUMEN WITH NS RUNNING AT 50 MLS/HR. PT HAS EXPIRATORY RHONCHI AND ON OXYMIZER 3LPM AND SATTING 98%. PT'S HR IS BRADYCARDIC @59. PEG TUBE PLACED WITH GLUCERNA 1.2 RUNNING AT 50 MLS/HR. PT HAS [address] TO GRAVITY. YELLOW URINE NOTED WITH SEDIMENT.
--- NOTE | 2022-09-05 23:00 | NUR ---
ALERT ONLY WITH CUBAN SPEAKING NURSE ATTEMPTED TO CHECK ORIENTATION TO NAME. PT STILL NOT SHAKING HER HEAD YES OR NO REPORTED BY PREVIOUS NURSE
[2022-09-06] VITALS (20 sets, daily range): BP systolic 115–161
--- NOTE | 2022-09-06 | NUR ---
ROUNDS PATIENT IS AWAKE IN BED, NON VERBAL AND UNRESPONSIVE TO NAME, RR EVEN AND UNLABORED. SB/SR ON MONITOR. SKIN WARM AND DRY. IVF INFUSING. SAFETY PRECAUTIONS IN PLACE, WILL CONTINUE TO MONITOR.
[2022-09-06] MEDS: INSULIN REGULAR, HUMAN 100 UNITS/ML, 3 ML VIAL (humuLIN R) SUBCUT PRN ×4 (01:27→17:56)
--- NOTE | 2022-09-06 03:00 | NUR ---
BED BATH PT GIVEN BED BATH WITH WITH COMPLETE LINEN CHANGE. ALL SAFETY MEASURE IN PLACE WILL CONTINUE TO MONITOR
[2022-09-06] MEDS: IPRATROPIUM/ALBUTEROL SULFATE 3 ML AMPUL.NEB (DUONEB) INH SCH ×6 (03:46→23:29)
[2022-09-06] MEDS: ACETYLCYSTEINE 20% 4 ML VIAL (RT) INH SCH ×6 (03:56→23:29)
--- NOTE | 2022-09-06 04:15 | NUR ---
WASH HAIR PT HAS BLOOD IN HAIR FORM IJ, HAIR WASHED AND CHUX PLACED ON TOP OF PILLOW
--- NOTE | 2022-09-06 05:30 | NUR ---
ROUNDS LAST I&O COMPLETED AND DOCUMENTED PT IN BED AWAKE ALL SAFETY MEASURES ARE IN PLACE
[2022-09-06 06:54] LABS: BASOPHILS % (AUTO) 0.2 % (0.0-2.0); HEMATOCRIT 34.1 % (36-48); HEMOGLOBIN 10.6 g/dL (12.0-16.0); LYMPHOCYTES # (AUTO) 0.6 K/uL (1.0-5.5); LYMPHOCYTES % (AUTO) 8.4 % (20.5-51.5); MEAN CORPUSCULAR HEMOGLOBIN 22 pg (27-31); MEAN CORPUSCULAR HGB CONC 31 % (32-36); MEAN CORPUSCULAR VOLUME 71 fL (79.0-98.0); MONOCYTES # (AUTO) 0.1 K/uL (0.0-1.0); MONOCYTES % (AUTO) 1.7 % (1.7-9.3); NEUTROPHILS # (AUTO) 6.7 K/uL (1.8-7.7); NEUTROPHILS % (AUTO) 89.7 % (40.0-70.0); PLATELET COUNT (AUTO) 233 K/uL (130-430); RED BLOOD CELL COUNT(AUTO) 4.82 MIL/uL (4.2-6.2); RED CELL DISTRIBUTION WIDTH 29.8 % (9.0-15.0); WHITE BLOOD COUNT (AUTO) 7.5 K/uL (4.8-10.8)
[2022-09-06 07:25] LABS: ANION GAP 4 (5-15); CALCIUM 8.2 mg/dL (8.4-11.0); CHLORIDE 106 mmol/L (98-107); CREATININE 0.59 mg/dL (0.55-1.30); GLUCOSE 203 mg/dL (70-99); UREA NITROGEN, BLOOD 26 mg/dL (8-21)
--- NOTE | 2022-09-06 07:26 | NUR ---
REPORT GIVEN REPORT GIVEN TO DEJAH ALEJO RN
--- NOTE | 2022-09-06 08:00 | NUR ---
AM ASSESSMENT PT ALERT, NODS HER HEAD WHEN TALKED TO, NON VERBAL, REPOSITIONED IN BED, CONTRACTED EXTREMITIES, PILLOW TO HER BACK, HEAD OF BED ELEVATED, FEEDING CONTINUES AT 50 ML PER HR. STILL RUNNER DR BEARDEN WENT IN TO EVALUATE THE PATIENT.
[2022-09-06] MEDS: methylPREDNISolone SOD SUCC/PF 62.5 MG/ML VIAL IVP SCH ×2 (09:27→22:18)
[2022-09-06] MEDS: DOCUSATE SODIUM 100 MG/10 ML UDC GT SCH ×2 (09:30→22:17)
[2022-09-06] MEDS: levETIRAcetam 500 MG TABLET GT SCH ×2 (09:31→22:17)
[2022-09-06] MEDS: DIGOXIN 0.125 MG TABLET GT SCH (09:32)
[2022-09-06] MEDS: LANSOPRAZOLE 30 MG CAPSULE.DR GT SCH (09:32)
[2022-09-06] MEDS: MULTIVITS,CA,MINERALS/IRON/FA 1 TABLET GT SCH (09:32)
[2022-09-06] MEDS: METOPROLOL TARTRATE 25 MG TABLET GT SCH ×2 (09:38→22:18)
[2022-09-06] MEDS: PEG 400/HYPROMELLOSE/GLYCERIN 15 ML DROPS EACH EYE SCH ×4 (09:42→22:21)
[2022-09-06 10:13] LABS: INR 2.2 (0.8-1.2); PROTHROMBIN TIME 21.5 SECS (9.5-12.5)
[2022-09-06] MEDS: CEFEPIME 2 GM in D5W 100 ML IV SCH ×2 (10:44→22:19)
[2022-09-06] MEDS: LevALBUTEROL HCL 1.25 MG/0.5 ML *CONC.* VIAL.NEB (XOPENEX CONC.) INH SCH ×2 (13:00→20:30)
--- NOTE | 2022-09-06 14:18 | NUR ---
CM: faxed Ltac eval package sent to Roberta, she will call nursing unit with update. [email or web address] made aware, she requested [place] or [place]. Per Roberta, the case is being eval and getting financial approval. She will call nursing unit once accepted, made aware that there is no CM during weekend. RN Talisha made aware.
[2022-09-06] MEDS: SOD FERRIC GLUC COMPLEX/SUC 125 MG in NS 100 ML IV SCH (15:29)
--- NOTE | 2022-09-06 17:00 | NUR ---
NURSING PT TO BE DOWNGRADED TO TELEMETRY STATUS. BANKRUPTCY LEGAL ASSISTANT OF [facility]ST AWARE. REQUESTING TO PLACE A REGULAR STAFF TO TAKE CARE OF THE PATIENT.
[2022-09-06] MEDS: WARFARIN SODIUM 2 MG TABLET PO SCH (17:43)
[2022-09-06] MEDS: 0.45% NACL 1,000 ML IV SCH (17:44)
--- NOTE | 2022-09-06 19:15 | NUR ---
OPENING NOTES Patient resting in bed - no s/s pain or distress noted. Respirations even and unlabored NC 2L - head of bed elevated. IV site patent - no s/s redness, infection, or infiltration. Bed locked and in lowest position. Call light within reach - bed alarm on.
--- NOTE | 2022-09-06 19:27 | NUR ---
TO [facility] ROOM 104-A. TRANSFERRED CARE TO KATIA RYAN.
[2022-09-07 00:23] VITALS: BP_SYST 160
[2022-09-07] MEDS: INSULIN REGULAR, HUMAN 100 UNITS/ML, 3 ML VIAL (humuLIN R) SUBCUT PRN ×2 (02:23→05:45)
[2022-09-07] MEDS: IPRATROPIUM/ALBUTEROL SULFATE 3 ML AMPUL.NEB (DUONEB) INH SCH ×6 (03:47→23:03)
[2022-09-07] MEDS: ACETYLCYSTEINE 20% 4 ML VIAL (RT) INH SCH ×6 (03:47→23:03)
[2022-09-07] MEDS: LevALBUTEROL HCL 1.25 MG/0.5 ML *CONC.* VIAL.NEB (XOPENEX CONC.) INH SCH ×3 (07:00→19:00)
[2022-09-07 08:17] VITALS: BP_SYST 134
[2022-09-07] MEDS: PEG 400/HYPROMELLOSE/GLYCERIN 15 ML DROPS EACH EYE SCH ×4 (09:00→21:17)
[2022-09-07 09:39] LABS: INR 2.4 (0.8-1.2); PROTHROMBIN TIME 23.3 SECS (9.5-12.5)
[2022-09-07] MEDS: MULTIVITS,CA,MINERALS/IRON/FA 1 TABLET GT SCH (09:49)
[2022-09-07] MEDS: DIGOXIN 0.125 MG TABLET GT SCH (09:49)
[2022-09-07] MEDS: LANSOPRAZOLE 30 MG CAPSULE.DR GT SCH (09:49)
[2022-09-07] MEDS: DOCUSATE SODIUM 100 MG/10 ML UDC GT SCH ×2 (09:50→21:10)
[2022-09-07] MEDS: levETIRAcetam 500 MG TABLET GT SCH ×2 (09:50→21:13)
[2022-09-07] MEDS: methylPREDNISolone SOD SUCC/PF 62.5 MG/ML VIAL IVP SCH ×2 (09:51→21:15)
[2022-09-07] MEDS: CEFEPIME 2 GM in D5W 100 ML IV SCH ×2 (09:53→21:11)
[2022-09-07] MEDS: METOPROLOL TARTRATE 25 MG TABLET GT SCH ×2 (10:05→21:14)
[2022-09-07 11:26] VITALS: BP_SYST 141
[2022-09-07 15:24] VITALS: BP_SYST 133
[2022-09-07] MEDS: SOD FERRIC GLUC COMPLEX/SUC 125 MG in NS 100 ML IV SCH (15:48)
--- NOTE | 2022-09-07 15:49 | NUR ---
150 ML WATER FLUSH ADMINISTERED. RESIDUAL 150 ML. HELD TUBE FEEDING AT 1430. RESUMED GLUCERNA 1.2 AT 1550. 60 ML RESIDUAL NOTED AFTER HOLD. WILL CONTINUE TO MONITOR PT.
--- NOTE | 2022-09-07 15:51 | NUR ---
TUBE FEEDING GLUCERNA 1.2 STARTED AT 65 ML/HR PER NEW ORDERS. WILL MONITOR RESIDUAL. Addendum: 09/08/22 at 1518 by Dwayne Bruno RN RN Tube feeding bottle and tubing changed at this time.
--- NOTE | 2022-09-07 16:27 | NUR ---
Nutrition F/U Admitting Diagnosis: Septic shock, Pneumonia, respiratory failure Reviewed Pertinent Medical/Surgical Hx: Medical Record, Primary RN, Patient Medical History Comment: Per EMR: 82yo female transferred to the ED with severe hypoxia, hypotension, evaluated by the ER physician. Initial workup significant for septic shock with lower lobe pneumonia. The patient started on high flow oxygen, IV fluid, antibiotic, admitted to ICU. The patient is a poor historian secondary to her old cerebrovascular accident. Pt found positive for Influenza A on 08/30/22. PMHx: HTN, atrial fibrillation, CVA, DM Subjective Information: RD rounded to pt's bedside earlier this afternoon. No evidence of TF bottle infusing, however TF pump present. RD spoke w/ primary RN who stated that she is planning to replace Glucerna 1.2 bottle, and that pt had >120 ml of GRV after flushing GT w/ water -- RD notified her of pt's recent change of TF goal rate to better meet pt's nutritional needs, as well of no need to hold TF for GRV <500 ml as per ASPEN guidelines. Pt was awake but unable to communicate w/ this RD. Per EMR review, Glucerna 1.2 was infusing at 100 ml/hr overnight 09/07; GRV: 0 ml 09/07; LBM x1 09/02 (no BM documented in last 5 days); pt is on RA. Current TF prescription is not appropriate. Current Diet Order/Nutrition Support: Glucerna 1.2 at 100 ml/hr, Free Water Flush: 150 ml Q6h via GT x8 days Patient/Significant Other: Unable To Verbalize Pertinent Medications: solu-medrol, lopressor, coumadin, IV iron, theragran, keppra, SSI Pertinent Labs: H/H 10.6 L/34.1 L, BUN 26 H, BG/POC BG 203 H/171 H Anthropometrics: Height: 5'4 Weight: 143#/64.9kg -- stable since 09/01 Body Mass Index: 24.54 kg/m2 %IBW: 118 [place]/Adjusted Body Weight:120#/55 kg Recent Weight Change: No - Per RN Screen Gastrointestinal Symptoms: None Last BM: Sep 02, 2022 Usual Diet At Home: NG tube per RN Screen Skin Integrity Comment: Horacio Score: 14, no edema/PIs per EMR review Estimated Energy Expenditure (kcals/day) 7254-4678 kcal (30-35 kcal/kg CBW d/t Sepsis) Estimated Protein Required (g/day) 97-110g (1.5-1.7g/kg CBW d/t sepsis) Estimated Fluid Required (l/day) 1.9-2.2L (1mL/kcal maintenance) Problem/Etiology/Signs/Symptoms * Increased energy and protein utilization r/t metabolic demands a/e/b estimated nutritional needs for sepsis. *Ongoing * Suboptimal EN support R/T overfeeding AEB current TF prescription meets 127% of estimated higher range caloric needs and 131% of higher end of estimated protein needs. *Resolved Expected Outcomes/Goals EN tolerated at goal rate, EN provides >90% estimated nutritional needs, improvements in skin integrity, nutrition-related labs trending WNL, weight maintenance, BM q 1-3 days Dietitian Recommendations * Glucerna 1.2 at 65 ml/hr (goal rate), Papito BID, Free Water Flush: 200 ml Q6h via GT Provides (w/ Papito): 2032 kcal/day, 99 gm protein/day, and 2055 ml free water/day Meets: 89% of upper end of estimated caloric needs, 102% of lower end of estimated protein needs, and 93% of upper end of estimated fluid needs High Risk: F/U in 2-3 days Addendum: 09/07/22 at [address] CORRECTION: Dietitian Recommendations * Glucerna 1.2 at 65 ml/hr (goal rate), Papito BID, Free Water Flush: 200 ml Q6h via GT Provides (w/ Papito): 2032 kcal/day, 99 gm protein/day, and 2056 ml free water/day Meets: 89% of upper end of estimated caloric needs, 102% of lower end of estimated protein needs, and 93% of upper end of estimated fluid needs * Consider bowel regimen -- no documented BM for past 5 days LP, MS, RD
--- NOTE | 2022-09-07 16:35 | NUR ---
Dietitian Recommendations * Glucerna 1.2 at 65 ml/hr (goal rate), Papito BID, Free Water Flush: 200 ml Q6h via GT Provides (w/ ): 2031 kcal/day, 99 gm protein/day, and 2055 ml free water/day Meets: 89% of upper end of estimated caloric needs, 102% of lower end of estimated protein needs, and 93% of upper end of estimated fluid needs LP, MS, RD Please refer to Nutrition Assessment for details. Addendum: 09/07/22 at [address] CORRECTION: Dietitian Recommendations * Glucerna 1.2 at 65 ml/hr (goal rate), Papito BID, Free Water Flush: 200 ml Q6h via GT Provides (w/ ): 2031 kcal/day, 99 gm protein/day, and 2055 ml free water/day Meets: 89% of upper end of estimated caloric needs, 102% of lower end of estimated protein needs, and 93% of upper end of estimated fluid needs * Consider bowel regimen -- no documented BM for past 5 days LP, MS, RD Please refer to Nutrition F/U for details.
[2022-09-07] MEDS: WARFARIN SODIUM 2 MG TABLET PO SCH (17:52)
--- NOTE | 2022-09-07 19:31 | NUR ---
Report endorsed to KATIA Oneal
[2022-09-07 21:00] VITALS: BP_SYST 137
[2022-09-07] MEDS: 0.45% NACL 1,000 ML IV SCH (21:29)
--- NOTE | 2022-09-07 22:15 | NUR ---
Reposition & Turning patient on schedule off loading with pillows kept clean also dry as needed Respirations Regular also unlabored / .
[2022-09-08 00:53] VITALS: BP_SYST 137
[2022-09-08] MEDS: INSULIN REGULAR, HUMAN 100 UNITS/ML, 3 ML VIAL (humuLIN R) SUBCUT PRN ×3 (00:58→17:52)
[2022-09-08] MEDS: LevALBUTEROL HCL 1.25 MG/0.5 ML *CONC.* VIAL.NEB (XOPENEX CONC.) INH SCH ×3 (01:00→13:00)
--- NOTE | 2022-09-08 01:23 | NUR ---
HOURLY ROUNDING BSG @ 201 mg dl no s/x of DIABETIC Reactions noted patient awake skin dry warm.
[2022-09-08] MEDS: IPRATROPIUM/ALBUTEROL SULFATE 3 ML AMPUL.NEB (DUONEB) INH SCH ×6 (04:04→22:55)
[2022-09-08] MEDS: ACETYLCYSTEINE 20% 4 ML VIAL (RT) INH SCH ×6 (04:05→22:55)
--- NOTE | 2022-09-08 04:46 | NUR ---
Hourly Rounding patient Resting on GTF @ 65 ML hr tube [id number] ML ,HOB kept elevated chest movement symmetrical unlabored .
--- NOTE | 2022-09-08 08:25 | NUR ---
Pt sounds congested and crackles noted. IVF stopped at this time.
--- NOTE | 2022-09-08 08:25 | NUR ---
fAMILY AT BEDSIDE - TRIED TO GET DAUGHTER TO ALLOW NT SUCTION - FAMILY REFUSED - RN NOTIFIED - WILL ATTEMPT AGAIN LATER
[2022-09-08 08:52] VITALS: BP_SYST 127
[2022-09-08] MEDS: DOCUSATE SODIUM 100 MG/10 ML UDC GT SCH ×2 (08:55→21:09)
[2022-09-08] MEDS: MULTIVITS,CA,MINERALS/IRON/FA 1 TABLET GT SCH (08:55)
[2022-09-08] MEDS: LANSOPRAZOLE 30 MG CAPSULE.DR GT SCH (08:56)
[2022-09-08] MEDS: METOPROLOL TARTRATE 25 MG TABLET GT SCH ×2 (08:57→21:11)
[2022-09-08] MEDS: CEFEPIME 2 GM in D5W 100 ML IV SCH ×2 (08:58→21:11)
[2022-09-08] MEDS: PEG 400/HYPROMELLOSE/GLYCERIN 15 ML DROPS EACH EYE SCH ×4 (08:59→21:12)
[2022-09-08] MEDS: DIGOXIN 0.125 MG TABLET GT SCH (08:59)
[2022-09-08] MEDS: methylPREDNISolone SOD SUCC/PF 62.5 MG/ML VIAL IVP SCH ×2 (09:00→21:10)
[2022-09-08] MEDS: levETIRAcetam 500 MG TABLET GT SCH ×2 (09:13→21:09)
[2022-09-08 09:57] LABS: ANION GAP 5 (5-15); CALCIUM 9.1 mg/dL (8.4-11.0); CHLORIDE 102 mmol/L (98-107); GLUCOSE 199 mg/dL (70-99); UREA NITROGEN, BLOOD 28 mg/dL (8-21)
[2022-09-08 10:00] LABS: INR 1.8 (0.8-1.2); PROTHROMBIN TIME 18.4 SECS (9.5-12.5)
[2022-09-08 10:03] LABS: BASOPHILS % (AUTO) 0.1 % (0.0-2.0); HEMATOCRIT 37.1 % (36-48); HEMOGLOBIN 11.6 g/dL (12.0-16.0); LYMPHOCYTES % (AUTO) 11.5 % (20.5-51.5); MEAN CORPUSCULAR HEMOGLOBIN 22 pg (27-31); MEAN CORPUSCULAR HGB CONC 31 % (32-36); MEAN CORPUSCULAR VOLUME 72 fL (79.0-98.0); MONOCYTES # (AUTO) 0.3 K/uL (0.0-1.0); MONOCYTES % (AUTO) 2.8 % (1.7-9.3); NEUTROPHILS # (AUTO) 7.7 K/uL (1.8-7.7); NEUTROPHILS % (AUTO) 85.6 % (40.0-70.0); PLATELET COUNT (AUTO) 262 K/uL (130-430); RED BLOOD CELL COUNT(AUTO) 5.17 MIL/uL (4.2-6.2); RED CELL DISTRIBUTION WIDTH 32.1 % (9.0-15.0)
[2022-09-08 11:22] VITALS: BP_SYST 117
--- NOTE | 2022-09-08 13:16 | NUR ---
BS 177 Addendum: 09/08/22 at 1316 by Dwayne Registry, KATIA RN Pt's daughter refuses insulin administration.
[2022-09-08] MEDS: SOD FERRIC GLUC COMPLEX/SUC 125 MG in NS 100 ML IV SCH (15:10)
--- NOTE | 2022-09-08 15:15 | NUR ---
Tube feeding bottle and tubing changed
[2022-09-08 15:25] VITALS: BP_SYST 120
[2022-09-08] MEDS: WARFARIN SODIUM 2.5 MG TABLET PO SCH (17:52)
[2022-09-08 21:00] VITALS: BP_SYST 138
[2022-09-08] MEDS: 0.45% NACL 1,000 ML IV SCH (21:12)
--- NOTE | 2022-09-08 21:30 | NUR ---
Patient awake non verbal HOB elevated on TUBE FEEDING kept up right position TUBE placement verified Residual 30 ML skin dry warm .
[2022-09-09 00:14] VITALS: BP_SYST 132
[2022-09-09] MEDS: INSULIN REGULAR, HUMAN 100 UNITS/ML, 3 ML VIAL (humuLIN R) SUBCUT PRN ×4 (00:19→17:36)
[2022-09-09] MEDS: IPRATROPIUM/ALBUTEROL SULFATE 3 ML AMPUL.NEB (DUONEB) INH SCH ×6 (03:00→23:40)
[2022-09-09] MEDS: ACETYLCYSTEINE 20% 4 ML VIAL (RT) INH SCH ×6 (03:01→23:40)
--- NOTE | 2022-09-09 03:04 | NUR ---
Hourly Rounding patient Resting is Responsive to light touch Reposition & Turning on two hour schedule tolerated chest movement symmetrical also unlabored / monitor .
[2022-09-09] MEDS: 0.45% NACL 1,000 ML IV SCH ×2 (05:52→23:00)
[2022-09-09 07:03] LABS: HEMATOCRIT 35.8 % (36-48); HEMOGLOBIN 11.4 g/dL (12.0-16.0); LYMPHOCYTES # (AUTO) 0.6 K/uL (1.0-5.5); LYMPHOCYTES % (AUTO) 8.2 % (20.5-51.5); MEAN CORPUSCULAR HEMOGLOBIN 23 pg (27-31); MEAN CORPUSCULAR HGB CONC 32 % (32-36); MEAN CORPUSCULAR VOLUME 71 fL (79.0-98.0); MONOCYTES # (AUTO) 0.1 K/uL (0.0-1.0); MONOCYTES % (AUTO) 1.8 % (1.7-9.3); NEUTROPHILS # (AUTO) 6.8 K/uL (1.8-7.7); PLATELET COUNT (AUTO) 236 K/uL (130-430); RED BLOOD CELL COUNT(AUTO) 5.02 MIL/uL (4.2-6.2); RED CELL DISTRIBUTION WIDTH 32.3 % (9.0-15.0); WHITE BLOOD COUNT (AUTO) 7.5 K/uL (4.8-10.8)
[2022-09-09 07:30] LABS: ALANINE AMINOTRANSFERASE 17 U/L (12-78); ALBUMIN 2.3 g/dL (3.4-4.8); ANION GAP 5 (5-15); ASPARTATE AMINOTRANSFERASE 10 U/L (10-37); CALCIUM 8.3 mg/dL (8.4-11.0); CHLORIDE 103 mmol/L (98-107); CREATININE 0.67 mg/dL (0.55-1.30); GLUCOSE 188 mg/dL (70-99); TOTAL BILIRUBIN 0.4 mg/dL (0.0-1.0); UREA NITROGEN, BLOOD 33 mg/dL (8-21)
[2022-09-09 08:00] VITALS: BP_SYST 141
--- NOTE | 2022-09-09 08:00 | NUR ---
Initial Notes Patient is Aox0. Nonverbal, awake. HOB elevated. GT feeding running. IVF running. DEMETRIA midline, patent. No ss of distress noted. Breathing is even and nonlabored, on room air. No SOB noted. Vital signs obtained, as documented. No facial grimace noted. Bed locked, at lowest position, exist alarm on. call light within reach.
[2022-09-09 08:52] LABS: INR 1.8 (0.8-1.2); PROTHROMBIN TIME 17.8 SECS (9.5-12.5)
[2022-09-09] MEDS: CEFEPIME 2 GM in D5W 100 ML IV SCH ×2 (09:17→21:03)
[2022-09-09] MEDS: methylPREDNISolone SOD SUCC/PF 62.5 MG/ML VIAL IVP SCH ×2 (09:18→21:03)
[2022-09-09] MEDS: PEG 400/HYPROMELLOSE/GLYCERIN 15 ML DROPS EACH EYE SCH ×4 (09:23→21:19)
[2022-09-09] MEDS: DOCUSATE SODIUM 100 MG/10 ML UDC GT SCH ×2 (09:23→21:03)
[2022-09-09] MEDS: DIGOXIN 0.125 MG TABLET GT SCH (09:24)
[2022-09-09] MEDS: METOPROLOL TARTRATE 25 MG TABLET GT SCH ×2 (09:25→21:19)
[2022-09-09] MEDS: LANSOPRAZOLE 30 MG CAPSULE.DR GT SCH (09:25)
[2022-09-09] MEDS: MULTIVITS,CA,MINERALS/IRON/FA 1 TABLET GT SCH (09:25)
[2022-09-09] MEDS: levETIRAcetam 500 MG TABLET GT SCH ×2 (09:25→21:04)
[2022-09-09] MEDS: ACETAMINOPHEN 650 MG/20.3 ML UDC GT PRN (09:26)
--- NOTE | 2022-09-09 10:15 | NUR ---
Notes Patient has been cleaned and reposition. Linens changed. HOB elevated. Gt feeding on. Safety precautions in place. Call light within reach.
[2022-09-09 11:26] VITALS: BP_SYST 138
--- NOTE | 2022-09-09 11:54 | NUR ---
Notes Blood glucose was 169 mg/dL. Administered 2 units to regular insulin. Gt feeding changed and running. HOB elevated. No ss of distress noted. Breathing is even and nonlabored, on room air. Safety precautions in place and call light within reach.
--- NOTE | 2022-09-09 15:11 | NUR ---
Notes patient is resting, eyes closed. No ss of distress noted. Breathing is even and nonlabored, on room air. No facial grimace noted. Safety precautions in place and call light within reach.
[2022-09-09 15:33] VITALS: BP_SYST 130
--- NOTE | 2022-09-09 17:30 | NUR ---
Notes Blood glucose was 189 mg/ dL. administered 2 units of regular insulin. GT feeding running. HOB elevated. Safety precautions in place and call light within reach.
[2022-09-09] MEDS: WARFARIN SODIUM 2.5 MG TABLET PO SCH (17:37)
[2022-09-09] MEDS: SOD FERRIC GLUC COMPLEX/SUC 125 MG in NS 100 ML IV SCH (17:38)
--- NOTE | 2022-09-09 19:27 | NUR ---
Closing Notes Patient resting, eyes closed. No ss of distress noted. Breathing is even and nonlabored, on room air. No facial grimace noted. NO SOB noted. IVF running, midline patent. HOB elevated. GT feeding running. F/C draining by gravity. All needs met. Bed locked, alarm on, and at lowest position. Call light within reach. Endorsed care to KATIA Waterman.
[2022-09-09 20:00] VITALS: BP_SYST 145
[2022-09-10] MEDS: ACETYLCYSTEINE 20% 4 ML VIAL (RT) INH SCH ×4 (03:00→15:40)
[2022-09-10] MEDS: IPRATROPIUM/ALBUTEROL SULFATE 3 ML AMPUL.NEB (DUONEB) INH SCH ×4 (03:00→15:41)
[2022-09-10] MEDS: INSULIN REGULAR, HUMAN 100 UNITS/ML, 3 ML VIAL (humuLIN R) SUBCUT PRN ×2 (07:24→16:51)
[2022-09-10 08:00] VITALS: BP_SYST 147
--- NOTE | 2022-09-10 08:00 | NUR ---
Initial Notes Patient is AOx0. No ss of distress noted. NO sob noted. HOB elevated. GT feeding running. IVF running. IV patent. No facial grimace noted. Vital signs obtained, as documented. F/c draining by gravity. Bed locked, alarm on and at lowest position. Call light within reach.
[2022-09-10 08:55] LABS: INR 1.9 (0.8-1.2); PROTHROMBIN TIME 19.4 SECS (9.5-12.5)
[2022-09-10] MEDS: methylPREDNISolone SOD SUCC/PF 62.5 MG/ML VIAL IVP SCH (09:41)
[2022-09-10] MEDS: CEFEPIME 2 GM in D5W 100 ML IV SCH (09:41)
[2022-09-10] MEDS: MULTIVITS,CA,MINERALS/IRON/FA 1 TABLET GT SCH (10:42)
[2022-09-10] MEDS: PEG 400/HYPROMELLOSE/GLYCERIN 15 ML DROPS EACH EYE SCH ×3 (10:42→16:51)
[2022-09-10] MEDS: DOCUSATE SODIUM 100 MG/10 ML UDC GT SCH (10:42)
[2022-09-10] MEDS: METOPROLOL TARTRATE 25 MG TABLET GT SCH (10:43)
[2022-09-10] MEDS: LANSOPRAZOLE 30 MG CAPSULE.DR GT SCH (10:43)
[2022-09-10] MEDS: DIGOXIN 0.125 MG TABLET GT SCH (10:46)
[2022-09-10] MEDS: levETIRAcetam 500 MG TABLET GT SCH (10:46)
[2022-09-10 11:26] VITALS: BP_SYST 145
--- NOTE | 2022-09-10 12:00 | NUR ---
Notes Patient is resting, eyes closed. No ss of distress noted. NO SOB noted. No facial grimace noted. Safety precautions in place and call light within reach.
--- NOTE | 2022-09-10 14:18 | NUR ---
Nutrition F/U Admitting Diagnosis: Septic shock, Pneumonia, respiratory failure Reviewed Pertinent Medical/Surgical Hx: Medical Record, Primary RN, Patient Medical History Comment: Per EMR: 82yo female transferred to the ED with severe hypoxia, hypotension, evaluated by the ER physician. Initial workup significant for septic shock with lower lobe pneumonia. The patient started on high flow oxygen, IV fluid, antibiotic, admitted to ICU. The patient is a poor historian secondary to her old cerebrovascular accident. Pt found positive for Influenza A on 08/30/22. PMHx: HTN, atrial fibrillation, CVA, DM Subjective Information: RD rounded to pt's bedside earlier this afternoon. RD witnessed Glucerna 1.2 infusing at 65 ml/hr, GRV: 20 ml 09/09; LBM x2 09/09; pt is on RA. Current TF prescription is appropriate. Pt was unable to speak at this time so RD s/w RN, Lilibeth. Lilibeth said pt is tolerating feedings well with 0 GRV today. Also that she is getting D/C for a procedure and then will be readmitted. RN attested to the LBM as today and normal. Current Diet Order/Nutrition Support: Glucerna 1.2 at 65 ml/hr, Papito BID, Free Water Flush: 200 ml Q6h via GT x3 days Patient/Significant Other: Unable To Verbalize NEW Pertinent Medications: solu-medrol, lopressor, coumadin, theragran, keppra, SSI, colace NEW Pertinent Labs: H/H 11.4L/35.8 L, BUN 33 H, BG/POC BG 188 H/128 H Anthropometrics: Height: 5'4 Weight: 143#/64.9kg -- stable since 09/01 Body Mass Index: 24.54 kg/m2 %IBW: 118 [place]/Adjusted Body Weight:120#/55 kg Recent Weight Change: No - Per RN Screen Gastrointestinal Symptoms: None Last BM: Sep 09, 2022 x 2 Usual Diet At Home: NG tube per RN Screen Skin Integrity Comment: Horacio Score: 17, no edema/PIs per EMR review Estimated Energy Expenditure (kcals/day) 3658-7953 kcal (30-35 kcal/kg CBW d/t Sepsis) Estimated Protein Required (g/day) 97-110g (1.5-1.7g/kg CBW d/t sepsis) Estimated Fluid Required (l/day) 1.9-2.2L (1mL/kcal maintenance) Problem/Etiology/Signs/Symptoms * Increased energy and protein utilization r/t metabolic demands a/e/b estimated nutritional needs for sepsis. *Ongoing * Suboptimal EN support R/T overfeeding AEB current TF prescription meets 127% of estimated higher range caloric needs and 131% of higher end of estimated protein needs. *Resolved Expected Outcomes/Goals EN tolerated at goal rate, EN provides >90% estimated nutritional needs, improvements in skin integrity, nutrition-related labs trending WNL, weight maintenance, BM q 1-3 days Dietitian Recommendations * Continue Glucerna 1.2 at 65 ml/hr (goal rate), Papito BID, Free Water Flush: 200 ml Q6h via GT Provides (w/ Papito): 2032 kcal/day, 99 gm protein/day, and 2056 ml free water/day Meets: 89% of upper end of estimated caloric needs, 102% of lower end of estimated protein needs, and 93% of upper end of estimated fluid needs * Consider obtaining Hgba1c value GS, MPH, RD
--- NOTE | 2022-09-10 14:19 | NUR ---
Dietitian Recommendations * Continue Glucerna 1.2 at 65 ml/hr (goal rate), Papito BID, Free Water Flush: 200 ml Q6h via GT Provides (w/ Papito): 2032 kcal/day, 99 gm protein/day, and 2055 ml free water/day Meets: 89% of upper end of estimated caloric needs, 102% of lower end of estimated protein needs, and 93% of upper end of estimated fluid needs * Consider obtaining Hgba1c value GS, MPH, RD Please refer to RD F/U for more details
--- NOTE | 2022-09-10 14:38 | NUR ---
Discharge Planning: YUE faxed pt referral to [facility] [phone] [place] to follow up. Addendum: 09/10/22 at 1603 by Erma Dorsey DP YUE arranged transport with [facility] [phone] BLS 7:00pm to [facility] [phone] Rm [id number]. YUE made CM and nurse aware patient packet taken to nurse station.
[2022-09-10 15:27] VITALS: BP_SYST 139
[2022-09-10 17:15] VITALS: BP_SYST 139
--- NOTE | 2022-09-10 17:42 | NUR ---
Notes Called [facility] and spoke to KATIA Lloyd, gave report.
[2022-09-10] MEDS: WARFARIN SODIUM 2.5 MG TABLET PO SCH (17:52)
--- NOTE | 2022-09-10 18:40 | NUR ---
D/C [facility] AND IVF.
--- NOTE | 2022-09-10 19:09 | NUR ---
DISCHARGE D/C Patient Patient being transferred to [facility] via ambulance. Medication reconciliation form and D/C instructions given to EMS along with discharge packet. Exit Care provided.. MD discussed with patient the results and treatment provided. Patient in stable condition, ID band removed. Picc line in place. Patient to receive IV antibiotics at SNF. . Rx of given. Patient educated on pain management. All belongings sent with patient.
[2022-09-10] MEDS ORDERED: predniSONE 20 MG TABLET GT SCH (21:00)
== END 2022-09-10 19:15 | DRG 871 ==
LOC: SED 10:59 → SIC 13:06 → STU 09-07 00:11 → SMU 09-10 13:28
PROVIDERS: ADMIT Family Medicine; ATTEND Family Medicine
PROC: 02HV33Z Insertion of Infusion Device into Superior Vena Cava, Percutaneous Approach (ICD-10-PCS; principal; 2022-08-30)
PROC: B548ZZA Ultrasonography of Superior Vena Cava, Guidance (ICD-10-PCS; 2022-08-30)
PROC: 30233N1 Transfusion of Nonautologous Red Blood Cells into Peripheral Vein, Percutaneous Approach (ICD-10-PCS; 2022-09-01)
PROC: 05HY33Z Insertion of Infusion Device into Upper Vein, Percutaneous Approach (ICD-10-PCS; 2022-09-02)
PROC: B54NZZA Ultrasonography of Left Upper Extremity Veins, Guidance (ICD-10-PCS; 2022-09-02)
DX: A41.9 Sepsis, unspecified organism (principal); J15.1 Pneumonia due to Pseudomonas; J96.01 Acute respiratory failure with hypoxia; R65.21 Severe sepsis with septic shock; I69.351 Hemiplegia and hemiparesis following cerebral infarction affecting right dominant side; I48.20 Chronic atrial fibrillation, unspecified; N39.0 Urinary tract infection, site not specified; J10.1 Influenza due to other identified influenza virus with other respiratory manifestations; R13.10 Dysphagia, unspecified; B96.89 Other specified bacterial agents as the cause of diseases classified elsewhere; D64.9 Anemia, unspecified; I11.0 Hypertensive heart disease with heart failure; I50.9 Heart failure, unspecified; Z20.822 Contact with and (suspected) exposure to COVID-19; E11.9 Type 2 diabetes mellitus without complications; Z88.0 Allergy status to penicillin; Z79.899 Other long term (current) drug therapy; Z93.1 Gastrostomy status; I69.320 Aphasia following cerebral infarction; Z79.4 Long term (current) use of insulin
CPT/HCPCS: 36415; 71045; 80048; 80053; 80061; 80162; 81000; 82550; 82553; 82607; 82728; 82746; 82962; 83540; 83550; 83605; 83735; 83880; 84484; 85007; 85025; 85027; 85610-TC; 85730-TC; 86886; 86900; 86901; 86920; 87040; 87070-TC; 87081; 87086; 87205-TC; 93005; 94640; 94664; 94760; 96365; 96366; 96375; 99285; G0378; G9035; J0692; J1815; J1940; J1956; J2185; J2543; J2916; J2930; J3370; J3480; J3490; J7050; J7060; J7608; J7612; J7613; P9021

== ENCOUNTER 2023-02-21 15:51 | Emergency (ER) | payer OTHER, MEDICAID ==
[~2023-02-21] VITALS: Ht 157.5 cm; Wt 79.4 kg
[~2023-02-21 15:51] MED LIST changes: +BISA-79 PR; +DOCU-144 GT; +INSU100V9 SQ; +LEVE750T4 GT; +METO-442 GT; +MOM GT; +MULT9LIQ6 PO; +NOR10 GT; +OMEP1CAP2 GT; +POLY15DR31 EACH EYE; +WARF-66 GT
[2023-02-21 15:58] VITALS: BP_SYST 135
--- NOTE | 2023-02-21 15:58 | NUR ---
Placed in room 6 . Placed on front desk monitor, blood pressure machine and pulse oximeter. To gown for exam. Side rails up. Report given to KATIA De La Fuente.
--- NOTE | 2023-02-21 16:03 | NUR ---
PT ABDIRAHMAN BAHENA, FROM [facility], AWAKE AND CONFUSED AOX0. PT BROGHT IN BECAUSE SHE PULLED OUT HER G-TUBE. A CATHTERED WAS PLACED IN THE HOLE. PT DOES NOT SEEM TO BE IN PAIN.
--- NOTE | 2023-02-21 16:05 | NUR ---
MD DR DURAN AT BEDSIDE
[2023-02-21] MEDS ORDERED: GASTROGRAFIN 120 ML ONE (17:14)
--- NOTE | 2023-02-21 17:20 | NUR ---
MD DR DURAN INSERTING NEW GTUBE AT BEDSIDE
--- NOTE | 2023-02-21 17:30 | NUR ---
XRAY AT BEDSIDE TO CONFIRM PLACEMENT
[2023-02-21 18:17] VITALS: BP_SYST 132
--- NOTE | 2023-02-21 18:19 | NUR ---
Patient given written and verbal discharge instructions and verbalizes understanding. ER MD DR DURAN discussed with patient the results and treatment provided. Patient in stable condition. ID arm band removed. Patient educated on pain management and to follow up with PMD. Pain Scale 0/10. Opportunity for questions provided and answered. Medication side effect fact sheet provided.
== END 2023-02-21 18:19 ==
LOC: SED 15:51
DX: Z43.1 Encounter for attention to gastrostomy (principal); E11.9 Type 2 diabetes mellitus without complications; I10 Essential (primary) hypertension; K21.9 Gastro-esophageal reflux disease without esophagitis; Z88.0 Allergy status to penicillin; Z79.4 Long term (current) use of insulin; Z79.899 Other long term (current) drug therapy
CPT/HCPCS: 99284; 43762; 74240; Q9963

== ENCOUNTER 2023-12-02 20:15 | Emergency (ER) | payer OTHER, MEDICAID ==
[~2023-12-02] VITALS: Ht 152.4 cm; Wt 59.0 kg
[2023-12-02 20:26] VITALS: BP_SYST 127; PULSE 164; RESP 32; TEMP 97.3; O2SAT 97
[2023-12-02 21:08] LABS: BASOPHILS # (AUTO) 0.1 K/uL (0.0-0.2); BASOPHILS % (AUTO) 0.8 % (0.0-2.0); EOSINOPHILS # (AUTO) 0.3 K/uL (0.0-0.4); EOSINOPHILS % (AUTO) 2.5 % (0.0-4.0); HEMATOCRIT 40.7 % (36-48); HEMOGLOBIN 13.6 g/dL (12.0-16.0); LYMPHOCYTES # (AUTO) 3.4 K/uL (1.0-5.5); LYMPHOCYTES % (AUTO) 28.9 % (20.5-51.5); MEAN CORPUSCULAR HEMOGLOBIN 28 pg (27-31); MEAN CORPUSCULAR HGB CONC 33 % (32-36); MEAN CORPUSCULAR VOLUME 85 fL (79.0-98.0); MONOCYTES # (AUTO) 1.1 K/uL (0.0-1.0); MONOCYTES % (AUTO) 9.8 % (1.7-9.3); NEUTROPHILS # (AUTO) 6.8 K/uL (1.8-7.7); PLATELET COUNT (AUTO) 288 K/uL (130-430); RED BLOOD CELL COUNT(AUTO) 4.81 MIL/uL (4.2-6.2); RED CELL DISTRIBUTION WIDTH 15.3 % (9.0-15.0); WHITE BLOOD COUNT (AUTO) 11.7 K/uL (4.8-10.8)
[2023-12-02 21:25] LABS: ANION GAP 10 (5-15); CALCIUM 9.6 mg/dL (8.4-11.0); CARBON DIOXIDE 23 mmol/L (23-29); CHLORIDE 105 mmol/L (98-107); CREATININE 0.96 mg/dL (0.55-1.30); GLUCOSE 303 mg/dL (74-106); POTASSIUM 4.7 mmol/L (3.5-5.1); SODIUM SERUM 138 mmol/L (136-145); UREA NITROGEN, BLOOD 42 mg/dL (8-21)
[2023-12-02] MEDS ORDERED: dilTIAZem HCL IVP 5 MG/ML VIAL ONE (21:31)
[2023-12-02] MEDS: NACL 0.9% 1,000 ML IV ONE (21:35)
[2023-12-02] MEDS: dilTIAZem HCL IVP 5 MG/ML VIAL IVP ONE (21:35)
[2023-12-03] MEDS ORDERED: GASTROGRAFIN 120 ML ONE (01:08)
[2023-12-03 01:45] VITALS: BP_SYST 128; PULSE 75; RESP 22; TEMP 97.3; O2SAT 96
== END 2023-12-03 01:45 | disposition home or self-care (01) ==
LOC: SED 20:15
DX: Z43.1 Encounter for attention to gastrostomy (principal); I48.20 Chronic atrial fibrillation, unspecified; R00.0 Tachycardia, unspecified; I10 Essential (primary) hypertension; E11.9 Type 2 diabetes mellitus without complications; K21.9 Gastro-esophageal reflux disease without esophagitis
CPT/HCPCS: 99291; 43762; 96374; 71045; 96361; 80048; 83880; 85025; 84484; 36415; 82948; 93005; 74240; J7030; Q9963; J3490

== ENCOUNTER 2024-06-13 18:17 | Inpatient (IN) | payer OTHER, MEDICAID ==
[~2024-06-13] VITALS: Ht 157.5 cm; Wt 64.2 kg
[2024-06-13 18:17] VITALS: BP_SYST 138; PULSE 95; RESP 20; TEMP 97.8; O2SAT 95
[~2024-06-13 18:17] MED LIST changes: -POLY15DR31 EACH EYE; +POLY15DR43 EACH EYE
[2024-06-13 19:30] LABS: HEMATOCRIT 41.2 % (36-48); HEMOGLOBIN 13.7 g/dL (12.0-16.0); MEAN CORPUSCULAR HEMOGLOBIN 28 pg (27-31); MEAN CORPUSCULAR HGB CONC 33 % (32-36); MEAN CORPUSCULAR VOLUME 86 fL (79.0-98.0); PLATELET COUNT (AUTO) 287 K/uL (130-430); RED BLOOD CELL COUNT(AUTO) 4.81 MIL/uL (4.2-6.2); RED CELL DISTRIBUTION WIDTH 15.9 % (9.0-15.0); WHITE BLOOD COUNT (AUTO) 18.8 K/uL (4.8-10.8)
[2024-06-13] MEDS: NACL 0.9% 2,000 ML IV ONE (19:45)
[2024-06-13 19:54] LABS: ANION GAP 14 (5-15); CALCIUM 10.1 mg/dL (8.4-11.0); CARBON DIOXIDE 23 mmol/L (23-29); CHLORIDE 97 mmol/L (98-107); CREATININE 0.99 mg/dL (0.55-1.30); GLUCOSE 324 mg/dL (74-106); POTASSIUM 4.7 mmol/L (3.5-5.1); SODIUM SERUM 134 mmol/L (136-145); UREA NITROGEN, BLOOD 34 mg/dL (8-21)
[2024-06-13] MEDS ORDERED: WARF3TAB59 PO (20:11)
[2024-06-13] MEDS ORDERED: DIGO125T PO (20:11)
[2024-06-13] MEDS ORDERED: INSU100I26 SQ (20:11)
[2024-06-13 20:12] LABS: BAND % (MANUAL) 9 % (0-6); BASOPHILS % (MANUAL) 0 % (0-2); EOSINOPHILS % (MANUAL) 1 % (0-7); LYMPHOCYTES % (MANUAL) 5 % (20-46); METAMYELOCYTES % 5 % (0-0); MONOCYTES % (MANUAL) 3 % (0-11); PLATELET ESTIMATE ADEQUATE (ADEQUATE)
[2024-06-13] MEDS ORDERED: ESOM40CA65 PO (20:14)
[2024-06-13] MEDS ORDERED: INSU100V7 SUBCUT (20:15)
[2024-06-13] MEDS: CEFEPIME 2 GM in D5W 100 ML IV ONE (20:15)
[2024-06-13] MEDS: VANCOMYCIN HCL 1,000 MG in NS 250 ML IV ONE (20:15)
[2024-06-13 20:34] LABS: INFLUENZA TYPE A Negative (NEGATIVE); INFLUENZA TYPE B NEGATIVE (NEGATIVE)
[2024-06-13 20:36] LABS: COVID19 ANTIGEN SOFIA FIA NEGATIVE (NEGATIVE)
[2024-06-13] MEDS ORDERED: CEFEPIME 2 GM/VIAL (MAXIPIME) ONE (21:01)
[2024-06-13] MEDS ORDERED: VANCOMYCIN HCL 1000 MG/VIAL IV ONE (21:01)
[2024-06-13 22:37] LABS: BILIRUBIN,URINE NEGATIVE (NEGATIVE); BLOOD, URINE 1+ (NEGATIVE); CLARITY/URINE SL CLOUDY (CLEAR); COLOR,URINE YELLOW (YELLOW); GLUCOSE,URINE TRACE (NEGATIVE); KETONES,URINE NEGATIVE (NEGATIVE); LEUKOCYTE ESTERASE ,URINE 1+ (NEGATIVE); NITRITE, URINE POSITIVE (NEGATIVE); PROTEIN URINE 2+ (NEGATIVE); UROBILINOGEN,URINE 0.2 (0.2-1.0)
[2024-06-13 22:40] LABS: INR 4.2 (0.8-1.2); PROTHROMBIN TIME 41.4 SECS (9.5-12.5)
[2024-06-13] MEDS ORDERED: DIGOXIN 0.5 MG/2 ML AMP ONE (22:48)
[2024-06-13 23:39] LABS: WBC,URINE 80-100 /HPF (0-3)
[2024-06-13 23:40] LABS: BACTERIA,URINE MANY /HPF (None Seen)
[2024-06-14] VITALS (11 sets, daily range): BP systolic 138–168; PULSE 101–109; RESP 17–19; TEMP 97.8–99; O2SAT 94–100
[2024-06-14] MEDS: METOPROLOL TARTRATE 25 MG TABLET GT SCH (00:45)
[2024-06-14] MEDS: NACL 0.9% 1,000 ML IV SCH (00:45)
[2024-06-14] MEDS ORDERED: MILK OF MAGNESIA 30 ML UDC GT PRN (00:45)
[2024-06-14] MEDS: levalbuterol HCL 0.63 MG/3 ML VIAL.NEB INH SCH ×2 (00:45→11:23)
[2024-06-14] MEDS: levETIRAcetam 500 MG TABLET GT SCH (00:45)
[2024-06-14] MEDS ORDERED: NOR10 PO (01:24)
[2024-06-14] MEDS: ACETAMINOPHEN 650 MG/20.3 ML UDC GT ONE (03:15)
[2024-06-14 07:42] LABS: BASOPHILS % (AUTO) 0.2 % (0.0-2.0); HEMATOCRIT 37.2 % (36-48); HEMOGLOBIN 11.8 g/dL (12.0-16.0); LYMPHOCYTES % (AUTO) 4.9 % (20.5-51.5); MEAN CORPUSCULAR HEMOGLOBIN 28 pg (27-31); MEAN CORPUSCULAR HGB CONC 32 % (32-36); MEAN CORPUSCULAR VOLUME 87 fL (79.0-98.0); MONOCYTES # (AUTO) 1.4 K/uL (0.0-1.0); NEUTROPHILS # (AUTO) 17.9 K/uL (1.8-7.7); NEUTROPHILS % (AUTO) 87.9 % (40.0-70.0); PLATELET COUNT (AUTO) 266 K/uL (130-430); RED BLOOD CELL COUNT(AUTO) 4.29 MIL/uL (4.2-6.2); RED CELL DISTRIBUTION WIDTH 16.1 % (9.0-15.0); WHITE BLOOD COUNT (AUTO) 20.3 K/uL (4.8-10.8)
[2024-06-14 08:30] LABS: PROTHROMBIN TIME 60.4 SECS (9.5-12.5)
[2024-06-14 08:31] LABS: INR 6.2 (0.8-1.2)
[2024-06-14 08:37] LABS: ALANINE AMINOTRANSFERASE 52 U/L (12-78); ALBUMIN 2.9 g/dL (3.4-4.8); ANION GAP 14 (5-15); ASPARTATE AMINOTRANSFERASE 49 U/L (10-37); CARBON DIOXIDE 22 mmol/L (23-29); CHLORIDE 106 mmol/L (98-107); GLUCOSE 255 mg/dL (74-106); POTASSIUM 4.6 mmol/L (3.5-5.1); SODIUM SERUM 142 mmol/L (136-145); TOTAL BILIRUBIN 0.6 mg/dL (0.0-1.0); TOTAL PROTEIN, SERUM 7.6 g/dL (6.4-8.3); UREA NITROGEN, BLOOD 22 mg/dL (8-21)
[2024-06-14] MEDS: PANTOPRAZOLE SODIUM 40 MG/VIAL (PROTONIX) IVP SCH (09:48)
[2024-06-14] MEDS: DOCUSATE SODIUM 100 MG/10 ML UDC GT SCH (09:48)
[2024-06-14] MEDS: DIGOXIN 0.125 MG TABLET GT SCH (09:49)
[2024-06-14] MEDS: CEFEPIME 1 GM in D5W 50 ML IV SCH (09:57)
[2024-06-14] MEDS: LISINOPRIL 10 MG TABLET (PRINIVIL) GT SCH (09:57)
[2024-06-14] MEDS: ACETYLCYSTEINE 20% 4 ML VIAL (RT) INH SCH (11:23)
[2024-06-14] MEDS: levalbuterol HCL 0.63 MG/3 ML VIAL.NEB INH ONE (11:23)
[2024-06-14] MEDS: INSULIN REGULAR, HUMAN 100 UNITS/ML, 3 ML VIAL (humuLIN R) SUBCUT PRN (11:50)
[2024-06-14] MEDS: VANCOMYCIN HCL 500 MG in NS 100 ML IV SCH (20:06)
[2024-06-14] MEDS: MEROPENEM 1 GM in NS 100 ML IV SCH (20:52)
[2024-06-15] VITALS (36 sets, daily range): BP systolic 108–170; PULSE 78–110; RESP 17–29; TEMP 97.6–100.7; O2SAT 97–100
[2024-06-15] MEDS: ACETAMINOPHEN 650 MG/20.3 ML UDC GT PRN (03:06)
[2024-06-15 03:13] LABS: ABG O2 SAT% ESTIMATE 99.8 % (94.0-98.0); BLOOD GAS BASE EXCESS -9.5 mmol/L (-2.0-3.0); BLOOD GAS HCO3 16.6 mmol/L (21.0-28.0); BLOOD GAS PCO2 36.7 mmHg (32.0-45.0); BLOOD GAS PH 7.272 (7.350-7.450); BLOOD GAS PO2 420.6 mmHg (83.0-108.0)
[2024-06-15] MEDS: hydrALAZINE HCL 20 MG/ML VIAL IVP PRN (05:07)
[2024-06-15] MEDS: hydrALAZINE HCL 20 MG/ML VIAL ONE (05:17)
[2024-06-15 06:37] LABS: BASOPHILS # (AUTO) 0.1 K/uL (0.0-0.2); BASOPHILS % (AUTO) 0.8 % (0.0-2.0); EOSINOPHILS # (AUTO) 0.8 K/uL (0.0-0.4); EOSINOPHILS % (AUTO) 5.1 % (0.0-4.0); HEMATOCRIT 30.5 % (36-48); HEMOGLOBIN 10.2 g/dL (12.0-16.0); LYMPHOCYTES # (AUTO) 0.8 K/uL (1.0-5.5); LYMPHOCYTES % (AUTO) 5.2 % (20.5-51.5); MEAN CORPUSCULAR HEMOGLOBIN 30 pg (27-31); MEAN CORPUSCULAR HGB CONC 33 % (32-36); MEAN CORPUSCULAR VOLUME 89 fL (79.0-98.0); MONOCYTES # (AUTO) 1.3 K/uL (0.0-1.0); MONOCYTES % (AUTO) 8.5 % (1.7-9.3); NEUTROPHILS % (AUTO) 80.4 % (40.0-70.0); PLATELET COUNT (AUTO) 301 K/uL (130-430); RED BLOOD CELL COUNT(AUTO) 3.44 MIL/uL (4.2-6.2); RED CELL DISTRIBUTION WIDTH 16.1 % (9.0-15.0); WHITE BLOOD COUNT (AUTO) 14.9 K/uL (4.8-10.8)
[2024-06-15 07:06] LABS: INR 7.5 (0.8-1.2); PROTHROMBIN TIME 72.1 SECS (9.5-12.5)
[2024-06-15 07:39] LABS: ALANINE AMINOTRANSFERASE 50 U/L (12-78); ALBUMIN 2.4 g/dL (3.4-4.8); ANION GAP 13 (5-15); ASPARTATE AMINOTRANSFERASE 50 U/L (10-37); CALCIUM 8.7 mg/dL (8.4-11.0); CARBON DIOXIDE 22 mmol/L (23-29); CHLORIDE 110 mmol/L (98-107); CREATININE 1.09 mg/dL (0.55-1.30); DIGOXIN 0.9 ng/mL (0.80-2.00); GLUCOSE 323 mg/dL (74-106); POTASSIUM 3.5 mmol/L (3.5-5.1); SODIUM SERUM 145 mmol/L (136-145); TOTAL BILIRUBIN 0.7 mg/dL (0.0-1.0); TOTAL PROTEIN, SERUM 6.7 g/dL (6.4-8.3); UREA NITROGEN, BLOOD 20 mg/dL (8-21)
[2024-06-15 08:39] LABS: INR 7.4 (0.8-1.2); PROTHROMBIN TIME 71.3 SECS (9.5-12.5)
[2024-06-15] MEDS ORDERED: PHYTONADIONE Non-Formulary 5 MG TABLET GT ONE (10:30)
[2024-06-15] MEDS: PHYTONADIONE (Vitamin K) Oral Solution PO ONE (11:24)
[2024-06-15 16:43] LABS: DIGOXIN 0.9 ng/mL (0.80-2.00)
[2024-06-16] VITALS (35 sets, daily range): BP systolic 111–168; PULSE 79–147; RESP 18–59; TEMP 98.6–101; O2SAT 98–100
[2024-06-16 06:40] LABS: BASOPHILS % (AUTO) 0.2 % (0.0-2.0); HEMATOCRIT 26.9 % (36-48); HEMOGLOBIN 8.8 g/dL (12.0-16.0); LYMPHOCYTES # (AUTO) 1.1 K/uL (1.0-5.5); LYMPHOCYTES % (AUTO) 8.3 % (20.5-51.5); MEAN CORPUSCULAR HEMOGLOBIN 28 pg (27-31); MEAN CORPUSCULAR HGB CONC 33 % (32-36); MEAN CORPUSCULAR VOLUME 87 fL (79.0-98.0); MONOCYTES % (AUTO) 7.8 % (1.7-9.3); NEUTROPHILS # (AUTO) 10.5 K/uL (1.8-7.7); NEUTROPHILS % (AUTO) 83.7 % (40.0-70.0); PLATELET COUNT (AUTO) 192 K/uL (130-430); RED BLOOD CELL COUNT(AUTO) 3.11 MIL/uL (4.2-6.2); RED CELL DISTRIBUTION WIDTH 16.3 % (9.0-15.0); WHITE BLOOD COUNT (AUTO) 12.6 K/uL (4.8-10.8)
[2024-06-16 06:53] LABS: INR 1.3 (0.8-1.2); PROTHROMBIN TIME 13.6 SECS (9.5-12.5)
[2024-06-16] MEDS: levalbuterol HCL 0.63 MG/3 ML VIAL.NEB INH ONE ×2 (07:04→11:09)
[2024-06-16 07:17] LABS: ALANINE AMINOTRANSFERASE 33 U/L (12-78); ANION GAP 10 (5-15); ASPARTATE AMINOTRANSFERASE 28 U/L (10-37); CALCIUM 9.1 mg/dL (8.4-11.0); CARBON DIOXIDE 23 mmol/L (23-29); CHLORIDE 116 mmol/L (98-107); CREATININE 0.89 mg/dL (0.55-1.30); GLUCOSE 232 mg/dL (74-106); POTASSIUM 3.1 mmol/L (3.5-5.1); SODIUM SERUM 149 mmol/L (136-145); TOTAL BILIRUBIN 0.9 mg/dL (0.0-1.0); TOTAL PROTEIN, SERUM 6.4 g/dL (6.4-8.3); UREA NITROGEN, BLOOD 17 mg/dL (8-21)
[2024-06-16 08:27] LABS: CHOLESTEROL 117 mg/dL (<200); HDL CHOLESTEROL 30 mg/dL (>55); TRIGLYCERIDES 131 mg/dL (30-150)
[2024-06-16 09:41] LABS: ABG O2 SAT% ESTIMATE 97.1 % (94.0-98.0); BLOOD GAS BASE EXCESS -4.4 mmol/L (-2.0-3.0); BLOOD GAS HCO3 18.9 mmol/L (21.0-28.0); BLOOD GAS PCO2 28.3 mmHg (32.0-45.0); BLOOD GAS PH 7.442 (7.350-7.450); BLOOD GAS PO2 87.2 mmHg (83.0-108.0)
[2024-06-16] MEDS ORDERED: 0.45% NACL 1,000 ML IV SCH (12:15)
[2024-06-16] MEDS: POTASSIUM CHLORIDE 20 MEQ/PKT PACKET GT ONE (13:48)
[2024-06-16] MEDS: KCL 20 mEq in 0.45% NS 1000 mL 1,000 ML IV SCH (14:25)
[2024-06-16] MEDS: dilTIAZem HCL IVP 5 MG/ML VIAL IVP PRN (15:53)
[2024-06-16] MEDS: WARFARIN SODIUM 3 MG TABLET PO SCH (17:41)
[2024-06-17] VITALS (36 sets, daily range): BP systolic 122–188; PULSE 64–99; RESP 18–27; TEMP 98.5–99.4; O2SAT 99–100
[2024-06-17 06:01] LABS: BASOPHILS % (AUTO) 0.4 % (0.0-2.0); EOSINOPHILS % (AUTO) 0.3 % (0.0-4.0); HEMATOCRIT 25.9 % (36-48); HEMOGLOBIN 8.4 g/dL (12.0-16.0); LYMPHOCYTES % (AUTO) 9.6 % (20.5-51.5); MEAN CORPUSCULAR HEMOGLOBIN 28 pg (27-31); MEAN CORPUSCULAR HGB CONC 33 % (32-36); MEAN CORPUSCULAR VOLUME 86 fL (79.0-98.0); MONOCYTES # (AUTO) 0.8 K/uL (0.0-1.0); MONOCYTES % (AUTO) 7.4 % (1.7-9.3); NEUTROPHILS # (AUTO) 8.7 K/uL (1.8-7.7); NEUTROPHILS % (AUTO) 82.3 % (40.0-70.0); PLATELET COUNT (AUTO) 182 K/uL (130-430); WHITE BLOOD COUNT (AUTO) 10.6 K/uL (4.8-10.8)
[2024-06-17 06:33] LABS: ALBUMIN 1.8 g/dL (3.4-4.8); ANION GAP 7 (5-15); CALCIUM 9.1 mg/dL (8.4-11.0); CARBON DIOXIDE 24 mmol/L (23-29); CHLORIDE 119 mmol/L (98-107); GLUCOSE 236 mg/dL (74-106); POTASSIUM 3.4 mmol/L (3.5-5.1); SODIUM SERUM 150 mmol/L (136-145); TOTAL BILIRUBIN 0.5 mg/dL (0.0-1.0); TOTAL PROTEIN, SERUM 6.1 g/dL (6.4-8.3); UREA NITROGEN, BLOOD 21 mg/dL (8-21)
[2024-06-17 07:30] LABS: ALANINE AMINOTRANSFERASE 23 U/L (12-78); ASPARTATE AMINOTRANSFERASE 10 U/L (10-37)
[2024-06-17 10:56] LABS: INR 1.1 (0.8-1.2)
[2024-06-17] MEDS: MICAFUNGIN SODIUM 50 MG in NS 50 ML IV SCH (13:09)
[2024-06-17] MEDS: POTASSIUM CHLORIDE 20 MEQ/PKT PACKET GT ONE (15:18)
[2024-06-17] MEDS: ACETAMINOPHEN 325 MG TABLET GT PRN (15:18)
[2024-06-17] MEDS: WARFARIN SODIUM 1 MG TABLET PO SCH (18:31)
[2024-06-18] VITALS (36 sets, daily range): BP systolic 98–162; PULSE 62–104; RESP 18–26; TEMP 97.1–100; O2SAT 97–100
[2024-06-18 06:23] LABS: BASOPHILS # (AUTO) 0.1 K/uL (0.0-0.2); BASOPHILS % (AUTO) 0.5 % (0.0-2.0); EOSINOPHILS # (AUTO) 0.2 K/uL (0.0-0.4); EOSINOPHILS % (AUTO) 2.3 % (0.0-4.0); HEMATOCRIT 24.9 % (36-48); HEMOGLOBIN 8.1 g/dL (12.0-16.0); LYMPHOCYTES # (AUTO) 1.4 K/uL (1.0-5.5); LYMPHOCYTES % (AUTO) 14.1 % (20.5-51.5); MEAN CORPUSCULAR HEMOGLOBIN 28 pg (27-31); MEAN CORPUSCULAR HGB CONC 33 % (32-36); MEAN CORPUSCULAR VOLUME 86 fL (79.0-98.0); MONOCYTES # (AUTO) 0.7 K/uL (0.0-1.0); MONOCYTES % (AUTO) 7.4 % (1.7-9.3); NEUTROPHILS # (AUTO) 7.4 K/uL (1.8-7.7); NEUTROPHILS % (AUTO) 75.7 % (40.0-70.0); PLATELET COUNT (AUTO) 172 K/uL (130-430); RED BLOOD CELL COUNT(AUTO) 2.88 MIL/uL (4.2-6.2); WHITE BLOOD COUNT (AUTO) 9.7 K/uL (4.8-10.8)
[2024-06-18 06:47] LABS: ANION GAP 9 (5-15); CALCIUM 8.6 mg/dL (8.4-11.0); CARBON DIOXIDE 23 mmol/L (23-29); CHLORIDE 112 mmol/L (98-107); GLUCOSE 224 mg/dL (74-106); POTASSIUM 3.8 mmol/L (3.5-5.1); SODIUM SERUM 144 mmol/L (136-145); UREA NITROGEN, BLOOD 20 mg/dL (8-21)
[2024-06-18 07:39] LABS: INR 1.2 (0.8-1.2); PROTHROMBIN TIME 13.2 SECS (9.5-12.5)
[2024-06-18 14:22] LABS: INR 1.5 (0.8-1.2); PROTHROMBIN TIME 15.3 SECS (9.5-12.5)
[2024-06-19] VITALS (36 sets, daily range): BP systolic 101–149; PULSE 57–74; RESP 18–20; TEMP 96.8–98.9; O2SAT 90–100
[2024-06-19 06:14] LABS: HEMATOCRIT 24.5 % (36-48); HEMOGLOBIN 7.9 g/dL (12.0-16.0); MEAN CORPUSCULAR HEMOGLOBIN 28 pg (27-31); MEAN CORPUSCULAR HGB CONC 32 % (32-36); MEAN CORPUSCULAR VOLUME 86 fL (79.0-98.0); PLATELET COUNT (AUTO) 161 K/uL (130-430); RED BLOOD CELL COUNT(AUTO) 2.84 MIL/uL (4.2-6.2); RED CELL DISTRIBUTION WIDTH 15.9 % (9.0-15.0); WHITE BLOOD COUNT (AUTO) 7.6 K/uL (4.8-10.8)
[2024-06-19 06:42] LABS: ANION GAP 10 (5-15); CALCIUM 8.3 mg/dL (8.4-11.0); CARBON DIOXIDE 23 mmol/L (23-29); CHLORIDE 110 mmol/L (98-107); CREATININE 0.73 mg/dL (0.55-1.30); GLUCOSE 177 mg/dL (74-106); INR 1.6 (0.8-1.2); POTASSIUM 3.7 mmol/L (3.5-5.1); PROTHROMBIN TIME 17.1 SECS (9.5-12.5); SODIUM SERUM 143 mmol/L (136-145); UREA NITROGEN, BLOOD 19 mg/dL (8-21)
[2024-06-19 08:37] LABS: LYMPHOCYTES % (MANUAL) 13 % (20-46)
[2024-06-19 08:38] LABS: ANISOCYTOSIS 1+; ATYPICAL LYMPHOCYTES % 5 % (0-0); BASOPHILS % (MANUAL) 0 % (0-2); EOSINOPHILS % (MANUAL) 2 % (0-7); MONOCYTES % (MANUAL) 8 % (0-11); PLATELET ESTIMATE ADEQUATE (ADEQUATE)
[2024-06-20] VITALS (37 sets, daily range): BP systolic 50–161; PULSE 18–106; RESP 18–29; TEMP 98–98.7; O2SAT 97–100
[2024-06-20 06:16] LABS: BASOPHILS # (AUTO) 0.1 K/uL (0.0-0.2); EOSINOPHILS # (AUTO) 0.4 K/uL (0.0-0.4); EOSINOPHILS % (AUTO) 5.5 % (0.0-4.0); HEMATOCRIT 26.1 % (36-48); HEMOGLOBIN 8.5 g/dL (12.0-16.0); LYMPHOCYTES # (AUTO) 1.6 K/uL (1.0-5.5); MEAN CORPUSCULAR HEMOGLOBIN 28 pg (27-31); MEAN CORPUSCULAR HGB CONC 33 % (32-36); MEAN CORPUSCULAR VOLUME 87 fL (79.0-98.0); MONOCYTES # (AUTO) 0.8 K/uL (0.0-1.0); MONOCYTES % (AUTO) 9.7 % (1.7-9.3); NEUTROPHILS # (AUTO) 4.9 K/uL (1.8-7.7); NEUTROPHILS % (AUTO) 62.8 % (40.0-70.0); PLATELET COUNT (AUTO) 185 K/uL (130-430); RED BLOOD CELL COUNT(AUTO) 3.01 MIL/uL (4.2-6.2); RED CELL DISTRIBUTION WIDTH 16.2 % (9.0-15.0); WHITE BLOOD COUNT (AUTO) 7.8 K/uL (4.8-10.8)
[2024-06-20 06:23] LABS: INR 2.2 (0.8-1.2); PROTHROMBIN TIME 22.3 SECS (9.5-12.5)
[2024-06-20 06:43] LABS: ANION GAP 8 (5-15); CALCIUM 8.6 mg/dL (8.4-11.0); CARBON DIOXIDE 23 mmol/L (23-29); CHLORIDE 105 mmol/L (98-107); CREATININE 0.69 mg/dL (0.55-1.30); GLUCOSE 168 mg/dL (74-106); POTASSIUM 3.8 mmol/L (3.5-5.1); SODIUM SERUM 136 mmol/L (136-145); UREA NITROGEN, BLOOD 19 mg/dL (8-21)
[2024-06-20 14:09] LABS: ABG O2 SAT% ESTIMATE 98.2 % (94.0-98.0); BLOOD GAS BASE EXCESS -1.1 mmol/L (-2.0-3.0); BLOOD GAS HCO3 22.3 mmol/L (21.0-28.0); BLOOD GAS PCO2 31.9 mmHg (32.0-45.0); BLOOD GAS PH 7.462 (7.350-7.450); BLOOD GAS PO2 106.3 mmHg (83.0-108.0)
[2024-06-20 14:15] LABS: ALLEN'S TEST POSITIVE (P)
[2024-06-20] MEDS: ALBUMIN HUMAN 25% 100 ML IV SCH (17:00)
[2024-06-20] MEDS: METOPROLOL TARTRATE 25 MG TABLET GT SCH (20:26)
[2024-06-21] VITALS (38 sets, daily range): BP systolic 91–171; PULSE 54–86; RESP 18–23; TEMP 97.9–99; O2SAT 96–100
[2024-06-21 05:59] LABS: BASOPHILS % (AUTO) 0.6 % (0.0-2.0); EOSINOPHILS # (AUTO) 0.3 K/uL (0.0-0.4); EOSINOPHILS % (AUTO) 4.3 % (0.0-4.0); HEMOGLOBIN 7.1 g/dL (12.0-16.0); LYMPHOCYTES # (AUTO) 1.1 K/uL (1.0-5.5); LYMPHOCYTES % (AUTO) 17.6 % (20.5-51.5); MEAN CORPUSCULAR HEMOGLOBIN 28 pg (27-31); MEAN CORPUSCULAR HGB CONC 33 % (32-36); MEAN CORPUSCULAR VOLUME 85 fL (79.0-98.0); MONOCYTES # (AUTO) 0.4 K/uL (0.0-1.0); MONOCYTES % (AUTO) 6.2 % (1.7-9.3); NEUTROPHILS # (AUTO) 4.4 K/uL (1.8-7.7); NEUTROPHILS % (AUTO) 71.3 % (40.0-70.0); PLATELET COUNT (AUTO) 169 K/uL (130-430); RED BLOOD CELL COUNT(AUTO) 2.54 MIL/uL (4.2-6.2); RED CELL DISTRIBUTION WIDTH 16.1 % (9.0-15.0); WHITE BLOOD COUNT (AUTO) 6.2 K/uL (4.8-10.8)
[2024-06-21 06:20] LABS: HEMATOCRIT 21.6 % (36-48); INR 2.5 (0.8-1.2); PROTHROMBIN TIME 25.9 SECS (9.5-12.5)
[2024-06-21 06:41] LABS: ALANINE AMINOTRANSFERASE 12 U/L (12-78); ALBUMIN 2.6 g/dL (3.4-4.8); ANION GAP 8 (5-15); ASPARTATE AMINOTRANSFERASE 28 U/L (10-37); CALCIUM 8.8 mg/dL (8.4-11.0); CARBON DIOXIDE 25 mmol/L (23-29); CHLORIDE 106 mmol/L (98-107); CREATININE 0.67 mg/dL (0.55-1.30); GLUCOSE 167 mg/dL (74-106); SODIUM SERUM 139 mmol/L (136-145); TOTAL BILIRUBIN 0.3 mg/dL (0.0-1.0); TOTAL PROTEIN, SERUM 5.9 g/dL (6.4-8.3); UREA NITROGEN, BLOOD 17 mg/dL (8-21)
[2024-06-21] MEDS ORDERED: levalbuterol HCL 0.63 MG/3 ML VIAL.NEB INH SCH (15:00)
[2024-06-21] MEDS: ACETYLCYSTEINE 20% 4 ML VIAL (RT) INH SCH (15:14)
[2024-06-21] MEDS: LevALBUTEROL HCL 1.25 MG/0.5 ML *CONC.* VIAL.NEB (XOPENEX CONC.) INH SCH (23:18)
[2024-06-22] VITALS (37 sets, daily range): BP systolic 126–171; PULSE 49–68; RESP 18–30; TEMP 98.2–99.3; O2SAT 97–100
[2024-06-22 06:38] LABS: BASOPHILS # (AUTO) 0.1 K/uL (0.0-0.2); BASOPHILS % (AUTO) 0.8 % (0.0-2.0); EOSINOPHILS # (AUTO) 0.2 K/uL (0.0-0.4); EOSINOPHILS % (AUTO) 2.4 % (0.0-4.0); HEMATOCRIT 30.6 % (36-48); HEMOGLOBIN 10.1 g/dL (12.0-16.0); LYMPHOCYTES # (AUTO) 1.1 K/uL (1.0-5.5); LYMPHOCYTES % (AUTO) 12.7 % (20.5-51.5); MEAN CORPUSCULAR HEMOGLOBIN 28 pg (27-31); MEAN CORPUSCULAR HGB CONC 33 % (32-36); MEAN CORPUSCULAR VOLUME 85 fL (79.0-98.0); MONOCYTES # (AUTO) 0.5 K/uL (0.0-1.0); MONOCYTES % (AUTO) 5.5 % (1.7-9.3); NEUTROPHILS # (AUTO) 6.9 K/uL (1.8-7.7); NEUTROPHILS % (AUTO) 78.6 % (40.0-70.0); PLATELET COUNT (AUTO) 197 K/uL (130-430); RED BLOOD CELL COUNT(AUTO) 3.59 MIL/uL (4.2-6.2); RED CELL DISTRIBUTION WIDTH 16.5 % (9.0-15.0); WHITE BLOOD COUNT (AUTO) 8.8 K/uL (4.8-10.8)
[2024-06-22 06:47] LABS: PROTHROMBIN TIME 19.9 SECS (9.5-12.5)
[2024-06-22 06:55] LABS: ALANINE AMINOTRANSFERASE 16 U/L (12-78); ALBUMIN 2.8 g/dL (3.4-4.8); ANION GAP 6 (5-15); ASPARTATE AMINOTRANSFERASE 18 U/L (10-37); CALCIUM 8.9 mg/dL (8.4-11.0); CARBON DIOXIDE 27 mmol/L (23-29); CHLORIDE 105 mmol/L (98-107); CREATININE 0.75 mg/dL (0.55-1.30); GLUCOSE 173 mg/dL (74-106); POTASSIUM 3.7 mmol/L (3.5-5.1); SODIUM SERUM 138 mmol/L (136-145); TOTAL PROTEIN, SERUM 6.4 g/dL (6.4-8.3); UREA NITROGEN, BLOOD 17 mg/dL (8-21)
[2024-06-22 07:33] LABS: TOTAL BILIRUBIN 0.6 mg/dL (0.0-1.0)
[2024-06-22] MEDS: WARFARIN SODIUM 1 MG TABLET PO SCH (18:56)
[2024-06-23] VITALS (36 sets, daily range): BP systolic 106–170; PULSE 48–66; RESP 18–26; TEMP 98.6–99.9; O2SAT 97–100
[2024-06-23 06:40] LABS: BASOPHILS % (AUTO) 0.4 % (0.0-2.0); EOSINOPHILS # (AUTO) 0.2 K/uL (0.0-0.4); EOSINOPHILS % (AUTO) 1.4 % (0.0-4.0); HEMATOCRIT 30.6 % (36-48); HEMOGLOBIN 10.2 g/dL (12.0-16.0); LYMPHOCYTES # (AUTO) 1.2 K/uL (1.0-5.5); LYMPHOCYTES % (AUTO) 10.7 % (20.5-51.5); MEAN CORPUSCULAR HEMOGLOBIN 28 pg (27-31); MEAN CORPUSCULAR HGB CONC 33 % (32-36); MEAN CORPUSCULAR VOLUME 85 fL (79.0-98.0); MONOCYTES # (AUTO) 0.7 K/uL (0.0-1.0); MONOCYTES % (AUTO) 6.2 % (1.7-9.3); NEUTROPHILS # (AUTO) 8.8 K/uL (1.8-7.7); NEUTROPHILS % (AUTO) 81.3 % (40.0-70.0); PLATELET COUNT (AUTO) 232 K/uL (130-430); RED BLOOD CELL COUNT(AUTO) 3.62 MIL/uL (4.2-6.2); RED CELL DISTRIBUTION WIDTH 16.5 % (9.0-15.0); WHITE BLOOD COUNT (AUTO) 10.9 K/uL (4.8-10.8)
[2024-06-23 06:47] LABS: INR 1.7 (0.8-1.2); PROTHROMBIN TIME 17.6 SECS (9.5-12.5)
[2024-06-23 07:04] LABS: ALANINE AMINOTRANSFERASE 11 U/L (12-78); ALBUMIN 2.5 g/dL (3.4-4.8); ANION GAP 10 (5-15); ASPARTATE AMINOTRANSFERASE 14 U/L (10-37); CALCIUM 8.8 mg/dL (8.4-11.0); CARBON DIOXIDE 25 mmol/L (23-29); CHLORIDE 104 mmol/L (98-107); CREATININE 0.66 mg/dL (0.55-1.30); GLUCOSE 182 mg/dL (74-106); POTASSIUM 3.8 mmol/L (3.5-5.1); SODIUM SERUM 139 mmol/L (136-145); TOTAL BILIRUBIN 0.7 mg/dL (0.0-1.0); TOTAL PROTEIN, SERUM 6.4 g/dL (6.4-8.3); UREA NITROGEN, BLOOD 14 mg/dL (8-21)
[2024-06-24] VITALS (38 sets, daily range): BP systolic 105–168; PULSE 48–68; RESP 18–28; TEMP 98.7–99.3; O2SAT 94–100
[2024-06-24 06:16] LABS: INR 1.8 (0.8-1.2); PROTHROMBIN TIME 17.8 SECS (9.5-12.5)
[2024-06-24 08:42] LABS: BASOPHILS # (AUTO) 0.1 K/uL (0.0-0.2); BASOPHILS % (AUTO) 0.6 % (0.0-2.0); EOSINOPHILS # (AUTO) 0.2 K/uL (0.0-0.4); EOSINOPHILS % (AUTO) 1.9 % (0.0-4.0); HEMATOCRIT 31.9 % (36-48); HEMOGLOBIN 10.5 g/dL (12.0-16.0); LYMPHOCYTES # (AUTO) 1.3 K/uL (1.0-5.5); LYMPHOCYTES % (AUTO) 14.4 % (20.5-51.5); MEAN CORPUSCULAR HEMOGLOBIN 28 pg (27-31); MEAN CORPUSCULAR HGB CONC 33 % (32-36); MEAN CORPUSCULAR VOLUME 85 fL (79.0-98.0); MONOCYTES # (AUTO) 0.7 K/uL (0.0-1.0); MONOCYTES % (AUTO) 7.9 % (1.7-9.3); NEUTROPHILS % (AUTO) 75.2 % (40.0-70.0); PLATELET COUNT (AUTO) 244 K/uL (130-430); RED BLOOD CELL COUNT(AUTO) 3.77 MIL/uL (4.2-6.2); RED CELL DISTRIBUTION WIDTH 16.4 % (9.0-15.0); WHITE BLOOD COUNT (AUTO) 9.2 K/uL (4.8-10.8)
[2024-06-24 09:41] LABS: ALANINE AMINOTRANSFERASE 10 U/L (12-78); ALBUMIN 2.5 g/dL (3.4-4.8); ANION GAP 9 (5-15); ASPARTATE AMINOTRANSFERASE 15 U/L (10-37); CALCIUM 8.5 mg/dL (8.4-11.0); CARBON DIOXIDE 25 mmol/L (23-29); CHLORIDE 100 mmol/L (98-107); CREATININE 0.72 mg/dL (0.55-1.30); GLUCOSE 141 mg/dL (74-106); POTASSIUM 3.5 mmol/L (3.5-5.1); SODIUM SERUM 134 mmol/L (136-145); TOTAL BILIRUBIN 0.4 mg/dL (0.0-1.0); TOTAL PROTEIN, SERUM 6.7 g/dL (6.4-8.3); UREA NITROGEN, BLOOD 14 mg/dL (8-21)
[2024-06-24] MEDS: FUROSEMIDE 40 MG/4 ML VIAL IVP ONE (17:48)
[2024-06-25] VITALS (38 sets, daily range): BP systolic 100–167; PULSE 49–80; RESP 18–31; TEMP 98.1–99.1; O2SAT 95–100
[2024-06-25] MEDS: THEOPHYLLINE ANHYDROUS 80 MG/15 ML UDC PO SCH (09:15)
[2024-06-26] VITALS (37 sets, daily range): BP systolic 99–166; PULSE 53–92; RESP 18–28; TEMP 98.2–99.7; O2SAT 96–100
[2024-06-26 06:39] LABS: BASOPHILS # (AUTO) 0.1 K/uL (0.0-0.2); BASOPHILS % (AUTO) 0.7 % (0.0-2.0); EOSINOPHILS # (AUTO) 0.1 K/uL (0.0-0.4); EOSINOPHILS % (AUTO) 1.6 % (0.0-4.0); HEMATOCRIT 32.5 % (36-48); HEMOGLOBIN 10.8 g/dL (12.0-16.0); LYMPHOCYTES # (AUTO) 1.1 K/uL (1.0-5.5); LYMPHOCYTES % (AUTO) 13.6 % (20.5-51.5); MEAN CORPUSCULAR HEMOGLOBIN 28 pg (27-31); MEAN CORPUSCULAR HGB CONC 33 % (32-36); MEAN CORPUSCULAR VOLUME 84 fL (79.0-98.0); MONOCYTES # (AUTO) 0.7 K/uL (0.0-1.0); MONOCYTES % (AUTO) 8.8 % (1.7-9.3); NEUTROPHILS # (AUTO) 5.9 K/uL (1.8-7.7); NEUTROPHILS % (AUTO) 75.3 % (40.0-70.0); PLATELET COUNT (AUTO) 286 K/uL (130-430); RED BLOOD CELL COUNT(AUTO) 3.86 MIL/uL (4.2-6.2); RED CELL DISTRIBUTION WIDTH 16.4 % (9.0-15.0); WHITE BLOOD COUNT (AUTO) 7.8 K/uL (4.8-10.8)
[2024-06-26 06:42] LABS: INR 2.3 (0.8-1.2); PROTHROMBIN TIME 22.7 SECS (9.5-12.5)
[2024-06-26 06:50] LABS: ANION GAP 11 (5-15); CALCIUM 9.2 mg/dL (8.4-11.0); CARBON DIOXIDE 27 mmol/L (23-29); CHLORIDE 98 mmol/L (98-107); CREATININE 0.81 mg/dL (0.55-1.30); GLUCOSE 178 mg/dL (74-106); POTASSIUM 3.4 mmol/L (3.5-5.1); SODIUM SERUM 136 mmol/L (136-145); UREA NITROGEN, BLOOD 17 mg/dL (8-21)
[2024-06-26] MEDS: LACTULOSE 20 GM/30 ML UDC GT SCH (08:39)
[2024-06-26] MEDS: WARFARIN SODIUM 1 MG TABLET PO SCH (18:31)
[2024-06-27] VITALS (33 sets, daily range): BP systolic 85–152; PULSE 52–83; RESP 18–26; TEMP 96.8–98.8; O2SAT 96–100
[2024-06-27 06:36] LABS: BASOPHILS # (AUTO) 0.1 K/uL (0.0-0.2); EOSINOPHILS # (AUTO) 0.2 K/uL (0.0-0.4); EOSINOPHILS % (AUTO) 3.3 % (0.0-4.0); HEMATOCRIT 28.5 % (36-48); HEMOGLOBIN 9.6 g/dL (12.0-16.0); LYMPHOCYTES # (AUTO) 1.3 K/uL (1.0-5.5); LYMPHOCYTES % (AUTO) 18.9 % (20.5-51.5); MEAN CORPUSCULAR HEMOGLOBIN 28 pg (27-31); MEAN CORPUSCULAR HGB CONC 34 % (32-36); MEAN CORPUSCULAR VOLUME 84 fL (79.0-98.0); MONOCYTES # (AUTO) 0.6 K/uL (0.0-1.0); MONOCYTES % (AUTO) 9.5 % (1.7-9.3); NEUTROPHILS # (AUTO) 4.5 K/uL (1.8-7.7); NEUTROPHILS % (AUTO) 67.3 % (40.0-70.0); PLATELET COUNT (AUTO) 274 K/uL (130-430); RED BLOOD CELL COUNT(AUTO) 3.37 MIL/uL (4.2-6.2); RED CELL DISTRIBUTION WIDTH 16.2 % (9.0-15.0); WHITE BLOOD COUNT (AUTO) 6.7 K/uL (4.8-10.8)
[2024-06-27 06:43] LABS: INR 2.6 (0.8-1.2); PROTHROMBIN TIME 25.5 SECS (9.5-12.5)
[2024-06-27 06:55] LABS: ALANINE AMINOTRANSFERASE 11 U/L (12-78); ALBUMIN 2.3 g/dL (3.4-4.8); ANION GAP 10 (5-15); ASPARTATE AMINOTRANSFERASE 15 U/L (10-37); CALCIUM 8.8 mg/dL (8.4-11.0); CARBON DIOXIDE 27 mmol/L (23-29); CHLORIDE 99 mmol/L (98-107); CREATININE 0.72 mg/dL (0.55-1.30); GLUCOSE 142 mg/dL (74-106); POTASSIUM 3.3 mmol/L (3.5-5.1); SODIUM SERUM 136 mmol/L (136-145); TOTAL BILIRUBIN 0.4 mg/dL (0.0-1.0); TOTAL PROTEIN, SERUM 6.5 g/dL (6.4-8.3); UREA NITROGEN, BLOOD 17 mg/dL (8-21)
[2024-06-27] MEDS: POTASSIUM CHLORIDE 20 MEQ TABLET.ER GT ONE (14:59)
[2024-06-28] VITALS (37 sets, daily range): BP systolic 98–157; PULSE 50–95; RESP 18–30; TEMP 97.6–99.1; O2SAT 95–100
[2024-06-28 06:28] LABS: BASOPHILS # (AUTO) 0.1 K/uL (0.0-0.2); BASOPHILS % (AUTO) 1.3 % (0.0-2.0); EOSINOPHILS # (AUTO) 0.2 K/uL (0.0-0.4); EOSINOPHILS % (AUTO) 4.2 % (0.0-4.0); HEMATOCRIT 29.1 % (36-48); HEMOGLOBIN 9.7 g/dL (12.0-16.0); LYMPHOCYTES # (AUTO) 1.4 K/uL (1.0-5.5); LYMPHOCYTES % (AUTO) 23.2 % (20.5-51.5); MEAN CORPUSCULAR HEMOGLOBIN 28 pg (27-31); MEAN CORPUSCULAR HGB CONC 33 % (32-36); MEAN CORPUSCULAR VOLUME 84 fL (79.0-98.0); MONOCYTES # (AUTO) 0.6 K/uL (0.0-1.0); MONOCYTES % (AUTO) 10.6 % (1.7-9.3); NEUTROPHILS # (AUTO) 3.6 K/uL (1.8-7.7); NEUTROPHILS % (AUTO) 60.7 % (40.0-70.0); PLATELET COUNT (AUTO) 300 K/uL (130-430); RED BLOOD CELL COUNT(AUTO) 3.47 MIL/uL (4.2-6.2); RED CELL DISTRIBUTION WIDTH 16.1 % (9.0-15.0); WHITE BLOOD COUNT (AUTO) 5.9 K/uL (4.8-10.8)
[2024-06-28 06:43] LABS: INR 2.2 (0.8-1.2); PROTHROMBIN TIME 21.7 SECS (9.5-12.5)
[2024-06-28 06:46] LABS: ANION GAP 7 (5-15); CALCIUM 9.1 mg/dL (8.4-11.0); CARBON DIOXIDE 29 mmol/L (23-29); CHLORIDE 99 mmol/L (98-107); CREATININE 0.83 mg/dL (0.55-1.30); GLUCOSE 154 mg/dL (74-106); POTASSIUM 3.6 mmol/L (3.5-5.1); SODIUM SERUM 135 mmol/L (136-145); UREA NITROGEN, BLOOD 21 mg/dL (8-21)
[2024-06-28] MEDS ORDERED: SENNOSIDES 8.6 MG TABLET PO SCH (09:00)
[2024-06-28] MEDS: BISACODYL 10 MG/SUPPOSITORY RC ONE (09:41)
[2024-06-29] VITALS (31 sets, daily range): BP systolic 95–200; PULSE 51–114; RESP 18–40; TEMP 97.4–98.2; O2SAT 93–100
[2024-06-29 06:31] LABS: INR 1.7 (0.8-1.2); PROTHROMBIN TIME 17.7 SECS (9.5-12.5)
[2024-06-29] MEDS: WARFARIN SODIUM 2.5 MG TABLET PO SCH (19:25)
[2024-06-29] MEDS: MORPHINE 4 MG INJ. 4 MG/ML VIAL IVP PRN (22:57)
[2024-06-30] VITALS (28 sets, daily range): BP systolic 108–175; PULSE 76–121; RESP 26–38; TEMP 96.4–101.1; O2SAT 90–96
[2024-06-30 07:09] LABS: BASOPHILS # (AUTO) 0.1 K/uL (0.0-0.2); BASOPHILS % (AUTO) 1.3 % (0.0-2.0); EOSINOPHILS # (AUTO) 0.2 K/uL (0.0-0.4); EOSINOPHILS % (AUTO) 1.6 % (0.0-4.0); HEMATOCRIT 31.5 % (36-48); HEMOGLOBIN 10.6 g/dL (12.0-16.0); LYMPHOCYTES # (AUTO) 1.4 K/uL (1.0-5.5); LYMPHOCYTES % (AUTO) 13.6 % (20.5-51.5); MEAN CORPUSCULAR HEMOGLOBIN 29 pg (27-31); MEAN CORPUSCULAR HGB CONC 34 % (32-36); MEAN CORPUSCULAR VOLUME 85 fL (79.0-98.0); MONOCYTES # (AUTO) 0.8 K/uL (0.0-1.0); MONOCYTES % (AUTO) 8.1 % (1.7-9.3); NEUTROPHILS # (AUTO) 7.7 K/uL (1.8-7.7); NEUTROPHILS % (AUTO) 75.4 % (40.0-70.0); PLATELET COUNT (AUTO) 365 K/uL (130-430); RED BLOOD CELL COUNT(AUTO) 3.71 MIL/uL (4.2-6.2); RED CELL DISTRIBUTION WIDTH 15.8 % (9.0-15.0); WHITE BLOOD COUNT (AUTO) 10.2 K/uL (4.8-10.8)
[2024-06-30 07:31] LABS: INR 1.5 (0.8-1.2)
[2024-06-30 08:17] LABS: ANION GAP 12 (5-15); CALCIUM 9.2 mg/dL (8.4-11.0); CARBON DIOXIDE 26 mmol/L (23-29); CHLORIDE 101 mmol/L (98-107); CREATININE 0.75 mg/dL (0.55-1.30); GLUCOSE 164 mg/dL (74-106); POTASSIUM 3.7 mmol/L (3.5-5.1); SODIUM SERUM 139 mmol/L (136-145); UREA NITROGEN, BLOOD 13 mg/dL (8-21)
[2024-06-30] MEDS: THEOPHYLLINE ANHYDROUS 80 MG/15 ML UDC GT ONE (10:09)
[2024-06-30] MEDS: LevALBUTEROL HCL 1.25 MG/0.5 ML *CONC.* VIAL.NEB (XOPENEX CONC.) INH SCH (15:44)
[2024-06-30] MEDS: ACETYLCYSTEINE 20% 4 ML VIAL (RT) INH SCH (15:44)
[2024-06-30] MEDS: WARFARIN SODIUM 2.5 MG TABLET GT SCH (17:19)
[2024-06-30] MEDS: LEVOFLOXACIN 250 MG/D5W 50 ML IV SCH (20:30)
[2024-06-30] MEDS: THEOPHYLLINE ANHYDROUS 80 MG/15 ML UDC GT SCH (20:31)
[2024-07-01] VITALS (13 sets, daily range): BP systolic 75–166; PULSE 99–144; RESP 22–37; TEMP 96.3–100.9; O2SAT 82–99
[2024-07-01 05:35] LABS: BASOPHILS % (AUTO) 0.3 % (0.0-2.0); EOSINOPHILS % (AUTO) 0.1 % (0.0-4.0); HEMATOCRIT 35.2 % (36-48); HEMOGLOBIN 11.6 g/dL (12.0-16.0); LYMPHOCYTES # (AUTO) 0.9 K/uL (1.0-5.5); LYMPHOCYTES % (AUTO) 5.4 % (20.5-51.5); MEAN CORPUSCULAR HEMOGLOBIN 28 pg (27-31); MEAN CORPUSCULAR HGB CONC 33 % (32-36); MEAN CORPUSCULAR VOLUME 84 fL (79.0-98.0); MONOCYTES # (AUTO) 1.1 K/uL (0.0-1.0); MONOCYTES % (AUTO) 6.8 % (1.7-9.3); NEUTROPHILS # (AUTO) 13.8 K/uL (1.8-7.7); NEUTROPHILS % (AUTO) 87.4 % (40.0-70.0); PLATELET COUNT (AUTO) 324 K/uL (130-430); RED BLOOD CELL COUNT(AUTO) 4.18 MIL/uL (4.2-6.2); RED CELL DISTRIBUTION WIDTH 16.1 % (9.0-15.0); WHITE BLOOD COUNT (AUTO) 15.8 K/uL (4.8-10.8)
[2024-07-01 05:56] LABS: PROTHROMBIN TIME 20.5 SECS (9.5-12.5)
[2024-07-01 06:36] LABS: ANION GAP 10 (5-15); CALCIUM 9.2 mg/dL (8.4-11.0); CARBON DIOXIDE 27 mmol/L (23-29); CHLORIDE 101 mmol/L (98-107); GLUCOSE 199 mg/dL (74-106); POTASSIUM 4.2 mmol/L (3.5-5.1); SODIUM SERUM 138 mmol/L (136-145); UREA NITROGEN, BLOOD 11 mg/dL (8-21)
[2024-07-01] MEDS: MORPHINE 4 MG INJ. 4 MG/ML VIAL IVP ONE (08:47)
[2024-07-01] MEDS: MORPHINE SULFATE IN 0.9 % NACL 100 ML IV PRN (08:50)
[2024-07-01] MEDS: GLYCOPYRROLATE 0.2 MG/ML VIAL IV PRN (15:04)
[2024-07-01] MEDS: MORPHINE SULFATE IN 0.9 % NACL 100 ML IV ONE (17:57)
[2024-07-02] MEDS ORDERED: MORPHINE SULFATE IN 0.9 % NACL 100 ML IV ONE (01:15)
[2024-07-02 07:23] LABS: INR 2.5 (0.8-1.2); PROTHROMBIN TIME 25.3 SECS (9.5-12.5)
[2024-07-02 07:56] VITALS: BP_SYST 75; PULSE 129; O2SAT 94
[2024-07-02 08:00] VITALS: O2SAT 94
[2024-07-02 12:00] VITALS: PULSE 112
[2024-07-02 13:30] VITALS: O2SAT 93
[2024-07-02 16:42] VITALS: PULSE 112
== END 2024-07-02 16:20 | DRG 870 ==
LOC: SED 18:17 → STU 06-14 00:38 → SIC 06-15 02:50 → SMU 07-01 14:14
PROVIDERS: ADMIT Internal Medicine; ATTEND Family Medicine
PROC: 5A1955Z Respiratory Ventilation, Greater than 96 Consecutive Hours (ICD-10-PCS; principal; 2024-06-15)
PROC: 0BH17EZ Insertion of Endotracheal Airway into Trachea, Via Natural or Artificial Opening (ICD-10-PCS; 2024-06-15)
PROC: 02HV33Z Insertion of Infusion Device into Superior Vena Cava, Percutaneous Approach (ICD-10-PCS; 2024-06-18)
PROC: 302 Administration, Circulatory, Transfusion (ICD-10-PCS; 2024-06-21)
DX: A41.9 Sepsis, unspecified organism (principal); J69.0 Pneumonitis due to inhalation of food and vomit; J96.01 Acute respiratory failure with hypoxia; N39.0 Urinary tract infection, site not specified; E87.20 Acidosis, unspecified; Z20.822 Contact with and (suspected) exposure to COVID-19; T45.515A Adverse effect of anticoagulants, initial encounter; E11.9 Type 2 diabetes mellitus without complications; F03.90 Unspecified dementia, unspecified severity, without behavioral disturbance, psychotic disturbance, mood disturbance, and anxiety; I46.9 Cardiac arrest, cause unspecified; T45.511A Poisoning by anticoagulants, accidental (unintentional), initial encounter; Y92.89 Other specified places as the place of occurrence of the external cause; I10 Essential (primary) hypertension; I48.0 Paroxysmal atrial fibrillation; Z93.1 Gastrostomy status; Z74.01 Bed confinement status; Z79.899 Other long term (current) drug therapy; Z88.8 Allergy status to other drugs, medicaments and biological substances; R65.20 Severe sepsis without septic shock
CPT/HCPCS: 36415; 36600; 70450-TC; 71045; 74018; 80048; 80053; 80061; 80162; 80202; 81000; 81001; 81015; 82803; 82948; 83605; 83735; 83880; 84484; 85007; 85025; 85027; 85610; 85730; 86886; 86900; 86901; 86920; 87040; 87070; 87081; 87086; 87186; 87205; 87230; 92950; 93005; 93306; 93971; 94002; 94003; 94070; 94640; 94760; 99291; G0378; J0360; J0692; J0696; J1160; J1815; J1940; J1956; J2185; J2270; J2470; J3370; J3430; J3480; J3490; J7030; J7050; J7060; J7608; J7612; J7614; P9021